=== PATIENT | male | born 1965 ===

== ENCOUNTER 2017-07-18 18:22 | Inpatient (IN) | payer OTHER ==
[~2017-07-18] VITALS: Ht 165.1 cm; Wt 60.5 kg
[2017-07-18] MEDS ORDERED: SODIUM CHLORIDE 0.9% 1000ML 1,000 ML IV STA ×2 (19:34→23:06)
--- NOTE | 2017-07-18 20:24 | DIAGNOSTIC IMAGING REPORT ---
CHEST ONE VIEW PORTABLE CLINICAL HISTORY: Pain, radiating to the abdomen. COMPARISON STUDY: No previous studies for comparison. FINDINGS: The cardiac and mediastinal contours are normal. There is no evidence of focal pulmonary consolidation. There is no evidence of failure. No pleural effusions are visualized.[ No free intraperitoneal air is visualized. IMPRESSION: No active disease in the chest. Electronically signed by: Bird Short M.D. 07/18/2017 8:23 PM Dictated Date/Time: 07/18/2017 8:22 PM
[2017-07-18 20:28] LABS: ALBUMIN 2.4 gm/dl (3.4-5.0); BLOOD UREA NITROGEN 8 mg/dl (7-18); CALCIUM 8.4 mg/dl (8.5-10.1); CARBON DIOXIDE 27 mmol/L (21-32); GLUCOSE 118 mg/dl (70-99); LIPASE 77 U/L (73-393); POTASSIUM 3.5 mmol/L (3.5-5.1); SODIUM 136 mmol/L (136-145)
[2017-07-18 20:37] LABS: HEMATOCRIT 40.5 % (42-52); HEMOGLOBIN 13.9 g/dL (14.0-18.0); MEAN CORPUSCULAR HEMOGLOBIN 30.5 pg (25-34); MEAN CORPUSCULAR HGB CONC 34.3 g/dl (32-36); MEAN PLATELET VOLUME 10.7 fL (7.4-10.4); PLATELET COUNT 365 K/uL (130-400); RED CELL DISTRIBUTION WIDTH CV 13.2 % (11.5-14.5); RED CELL DISTRIBUTION WIDTH SD 42.9 fL (36.4-46.3); WHITE BLOOD COUNT 17.59 K/uL (4.8-10.8)
[2017-07-18 20:38] LABS: BASO % 0.3 %; BASO ABS # 0.05 K/uL (0-0.2); EOS % 1.7 %; LYMPH % 12.8 %; LYMPH ABS # 2.26 K/uL (1.2-3.4); MONO % 15.9 %; MONO ABS # 2.79 K/uL (0.11-0.59); NEUT % 68.7 %; NEUT ABS # 12.09 K/uL (1.4-6.5)
[2017-07-18 20:39] LABS: ALKALINE PHOSPHATASE 84 U/L (45-117); ALT/SGPT 20 U/L (12-78); AST/SGOT 17 U/L (15-37); TOTAL PROTEIN 6.6 gm/dl (6.4-8.2)
[2017-07-18] MEDS ORDERED: OPTIRAY 320 IV PRN (22:15)
[2017-07-18 22:37] LABS: INR 1.1 (0.9-1.1)
--- NOTE | 2017-07-18 22:46 | DIAGNOSTIC IMAGING REPORT ---
CT ABD/PELVIS IV AND ORAL CONT CLINICAL HISTORY: Abdominal pain and bloody diarrhea COMPARISON STUDY: None. TECHNIQUE: Following the IV administration of 92 mL of Optiray-320, CT scan of the abdomen and pelvis was performed from the lung bases to the proximal femurs. Images are reviewed in the axial, sagittal, and coronal planes. IV contrast was administered without complication. A dose lowering technique was utilized adhering to the principles of ALARA. CT DOSE: 273.08 mGy.cm FINDINGS: Lower chest: There is pulmonary emphysema. There are dependent atelectatic changes. Liver: There is an 8 mm left lobe hepatic hypodensity likely representing a cyst. Gallbladder: Unremarkable. Spleen: Normal in size and attenuation. Pancreas: Unremarkable. Adrenal glands: Unremarkable. Kidneys: There is a 9 mm right renal calculus. There is no hydronephrosis. There are no solid renal masses. Bowel: There is diffuse colonic wall thickening extending from the rectum to the ascending colon. The findings are indicative of pancolitis. There is no evidence of acute appendicitis. Peritoneum: There is no intraperitoneal free air or abdominal ascites. Vasculature: The abdominal aorta is normal in course and caliber. Adenopathy: There are mildly prominent para-aortic lymph nodes, possibly reactive. Pelvic viscera: The bladder, and pelvic viscera are unremarkable. Skeletal structures: No destructive osseous lesions are seen. IMPRESSION: 1. No evidence of bowel obstruction. No evidence of free air 2. Extensive pancolonic bowel wall thickening with engorgement of the adjacent mesentery. The findings are indicative of a pancolitis 3. Nonobstructing right renal calculus 4. Mildly prominent para-aortic lymph nodes possibly reactive 5. Emphysema Electronically signed by: Bird Short M.D. 07/18/2017 10:44 PM Dictated Date/Time: 07/18/2017 10:39 PM
[2017-07-18] MEDS ORDERED: MELO-84 PO (23:53)
[2017-07-18] MEDS ORDERED: RANI150T85 PO (23:53)
[2017-07-18] MEDS ORDERED: ONDA4TAB46 PO (23:53)
[2017-07-19] VITALS (7 sets, daily range): BP systolic 98–133; BP diastolic 62–80; PULSE 89–103; TEMP 36.9–37.4; O2SAT 93–97; Ht 165.1 cm; Wt 60.5 kg
--- NOTE | 2017-07-19 00:03 | EMERGENCY ROOM VISIT NOTE ---
History Report prepared by Becki: Ngozi Ziegler Under the Supervision of: Dr. Nishant Awad D.O. First contact with patient: 19:34 Chief Complaint: DIARRHEA Stated Complaint: BLOODY DIARRHEA Nursing Triage Summary: bloody diarrhea for 3 weeks nausea abd pain History of Present Illness The patient is a 52 year old male who presents to the Emergency Room with complaints of persistent diarrhea starting a few weeks ago. The patient presents to the ED from intermediate. The patient has had frequent bloody diarrhea. He has never had this before. He is having generalized abdominal pain which worsens with having a bowel movement. He is nauseous, but has not vomited. [facility] for a [facility]oscopy. His blood pressure was found to be low today. He denies any recent antibiotic use. He denies having any medical problems or previous abdominal surgeries. He quit smoking 2 months ago. He denies any history of alcoholism. He denies any sick contacts. Source of History: patient Onset: few weeks ago Position: abdomen Quality: other (diarrhea) Timing: other (persistent) Associated Symptoms: + nausea, + abdominal pain, + hematochezia, No vomiting Review of Systems See HPI for pertinent positives & negatives. A total of 10 systems reviewed and were otherwise negative. Past Medical & Surgical No previous abdominal surgeries. Family History No pertinent family history stated. Social History Smoking Status: Former Smoker Housing Status: other (intermediate) Current/Historical Medications Scheduled Ranitidine (Zantac), 150 MG PO BID Scheduled PRN Meloxicam (Mobic), 15 MG PO DAILY PRN for Pain Ondansetron Hcl (Zofran), 4 MG PO TID PRN for Nausea Allergies Coded Allergies: No Known Allergies (Unverified , 07/18/17) Physical Exam Vital Signs Date Time Temp Pulse Resp B/P (MAP) Pulse Ox O2 Delivery O2 Flow Rate FiO2 07/19/17 00:06 95 07/18/17 23:21 93 18 125/76 97 Room Air 07/18/17 22:46 93 20 108/70 97 Room Air 07/18/17 20:57 98 16 123/66 97 Room Air 98 126/81 100 132/91 07/18/17 20:27 93 07/18/17 19:41 96 Room Air 07/18/17 19:41 96 Room Air 07/18/17 18:40 37.1 109 20 107/72 96 Room Air Physical Exam GENERAL: Patient is awake, alert, frail appearing, uncomfortable appearing. EYES: The conjunctivae are clear. The pupils are round and reactive. EARS, NOSE, MOUTH AND THROAT: The nose is without any evidence of any deformity. Mucous membranes are dry tongue is midline NECK: The neck is nontender and supple. RESPIRATORY: Normal respiratory effort is noted there is no evidence of wheezing rhonchi or rales CARDIOVASCULAR: Regular rate and rhythm noted there no murmurs rubs or gallops normal S1 normal S2 GASTROINTESTINAL: The abdomen is soft with diffuse tenderness to palpation. No guarding or rigidity appreciated. MUSCULOSKELETAL/EXTREMITIES: There is no evidence of gross deformity full range of motion is noted in the hips and shoulders SKIN: There is no obvious evidence of any rash. There are no petechiae, pallor or cyanosis noted. NEUROLOGIC: Patient is awake alert and oriented x3 Medical Decision & Procedures ER Provider Diagnostic Interpretation: X-ray results as stated below per interpretation by me and the radiologist. Radiology results as stated below per my review and radiologist interpretation: CHEST ONE VIEW PORTABLE CLINICAL HISTORY: Pain, radiating to the abdomen. COMPARISON STUDY: No previous studies for comparison. FINDINGS: The cardiac and mediastinal contours are normal. There is no evidence of focal pulmonary consolidation. There is no evidence of failure. No pleural effusions are visualized.[ No free intraperitoneal air is visualized. IMPRESSION: No active disease in the chest. Electronically signed by: Bird Short M.D. 07/18/2017 8:23 PM Dictated Date/Time: 07/18/2017 8:[address] ABD/PELVIS IV AND ORAL CONT CLINICAL HISTORY: Abdominal pain and bloody diarrhea COMPARISON STUDY: None. TECHNIQUE: Following the IV administration of 92 mL of Optiray-320, CT scan of the abdomen and pelvis was performed from the lung bases to the proximal femurs. Images are reviewed in the axial, sagittal, and coronal planes. IV contrast was administered without complication. A dose lowering technique was utilized adhering to the principles of ALARA. CT DOSE: 273.08 mGy.cm FINDINGS: Lower chest: There is pulmonary emphysema. There are dependent atelectatic changes. Liver: There is an 8 mm left lobe hepatic hypodensity likely representing a cyst. Gallbladder: Unremarkable. Spleen: Normal in size and attenuation. Pancreas: Unremarkable. Adrenal glands: Unremarkable. Kidneys: There is a 9 mm right renal calculus. There is no hydronephrosis. There are no solid renal masses. Bowel: There is diffuse colonic wall thickening extending from the rectum to the ascending colon. The findings are indicative of pancolitis. There is no evidence of acute appendicitis. Peritoneum: There is no intraperitoneal free air or abdominal ascites. Vasculature: The abdominal aorta is normal in course and caliber. Adenopathy: There are mildly prominent para-aortic lymph nodes, possibly reactive. Pelvic viscera: The bladder, and pelvic viscera are unremarkable. Skeletal structures: No destructive osseous lesions are seen. IMPRESSION: 1. No evidence of bowel obstruction. No evidence of free air 2. Extensive pancolonic bowel wall thickening with engorgement of the adjacent mesentery. The findings are indicative of a pancolitis 3. Nonobstructing right renal calculus 4. Mildly prominent para-aortic lymph nodes possibly reactive 5. Emphysema Electronically signed by: Bird Short M.D. 07/18/2017 10:44 PM Dictated Date/Time: 07/18/2017 10:39 PM Laboratory Results 07/18/17 19:45 Red Blood Count 4.55, Mean Corpuscular Volume 89.0, Mean Corpuscular Hemoglobin 30.5, Mean Corpuscular Hemoglobin Concent 34.3, Mean Platelet Volume 10.7, Neutrophils (%) (Auto) 68.7, Lymphocytes (%) (Auto) 12.8, Monocytes (%) (Auto) 15.9, Eosinophils (%) (Auto) 1.7, Basophils (%) (Auto) 0.3, Neutrophils # (Auto ) 12.09, Lymphocytes # (Auto) 2.26, Monocytes # (Auto) 2.79, Eosinophils # (Auto ) 0.30, Basophils # (Auto) 0.05 07/18/17 19:45 Test 07/18/17 19:45 07/18/17 21:51 White Blood Count 17.59 K/uL (4.8-10.8) Red Blood Count 4.55 M/uL (4.7-6.1) Hemoglobin 13.9 g/dL (14.0-18.0) Hematocrit 40.5 % (42-52) Mean Corpuscular Volume 89.0 fL (80-100) Mean Corpuscular Hemoglobin 30.5 pg (25-34) Mean Corpuscular Hemoglobin Concent 34.3 g/dl (32-36) Platelet Count 365 K/uL (130-400) Mean Platelet Volume 10.7 fL (7.4-10.4) Neutrophils (%) (Auto) 68.7 % Lymphocytes (%) (Auto) 12.8 % Monocytes (%) (Auto) 15.9 % Eosinophils (%) (Auto) 1.7 % Basophils (%) (Auto) 0.3 % Neutrophils # (Auto) 12.09 K/uL (1.4-6.5) Lymphocytes # (Auto) 2.26 K/uL (1.2-3.4) Monocytes # (Auto) 2.79 K/uL (0.11-0.59) Eosinophils # (Auto) 0.30 K/uL (0-0.5) Basophils # (Auto) 0.05 K/uL (0-0.2) RDW Standard Deviation 42.9 fL (36.4-46.3) RDW Coefficient of Variation 13.2 % (11.5-14.5) Immature Granulocyte % (Auto) 0.6 % Immature Granulocyte # (Auto) 0.10 K/uL (0.00-0.02) Platelet Estimate NORMAL Urine Color DK YELLOW Urine Appearance CLEAR (CLEAR) Urine pH 5.5 (4.5-7.5) Urine Specific [place] 1.018 (1.000-1.030) Urine Protein TRACE (NEG) Urine Glucose (UA) NEG (NEG) Urine Ketones NEG (NEG) Urine Occult Blood TRACE (NEG) Urine Nitrite NEG (NEG) Urine Bilirubin NEG (NEG) Urine Urobilinogen NEG (NEG) Urine Leukocyte Esterase NEG (NEG) Urine WBC (Auto) 1-5 /hpf (0-5) Urine RBC (Auto) 0-4 /hpf (0-4) Urine Hyaline Casts (Auto) 10-30 /lpf (0-5) Urine Epithelial Cells (Auto) 20-30 /lpf (0-5) Urine Bacteria (Auto) NEG (NEG) Anion Gap 8.0 mmol/L (3-11) Est Creatinine Clear Calc Drug Dose 80.3 ml/min Estimated GFR () 111.8 Estimated GFR (Non- 96.5 BUN/Creatinine Ratio 8.8 (10-20) Calcium Level 8.4 mg/dl (8.5-10.1) Magnesium Level 2.4 mg/dl (1.8-2.4) Total Bilirubin 0.3 mg/dl (0.2-1) Direct Bilirubin < 0.1 mg/dl (0-0.2) Aspartate Amino Transf (AST/SGOT) 17 U/L (15-37) Alanine Aminotransferase (ALT/SGPT) 20 U/L (12-78) Alkaline Phosphatase 84 U/L (45-117) Total Protein 6.6 gm/dl (6.4-8.2) Albumin 2.4 gm/dl (3.4-5.0) Lipase 77 U/L (73-393) Thyroid Stimulating Hormone (TSH) 1.210 uIu/ml (0.300-4.500) Prothrombin Time 11.1 SECONDS (9.0-12.0) Prothromb Time International Ratio 1.1 (0.9-1.1) Activated Partial Thromboplast Time 29.0 SECONDS (21.0-31.0) Partial Thromboplastin Ratio 1.1 Laboratory results per my review. Medications Administered Medications (Trade) Dose Ordered Sig/John Route Start Time Stop Time Status Last Admin Dose Admin Sodium Chloride 1,000 ml @ 999 mls/hr Q1H1M STAT IV 07/18/17 19:34 07/18/17 20:34 DC 07/18/17 20:14 999 MLS/HR Sodium Chloride 1,000 ml @ 999 mls/hr Q1H1M STAT IV 07/18/17 23:06 07/19/17 00:06 DC 07/18/17 23:20 999 MLS/HR ED Course 4: NSS 1,000 ml @ 999 mls/hr IV 1947: The patient was evaluated in room A10. A complete history and physical examination were performed. 6: NSS 1,000 ml @ 999 mls/hr IV 2330: Upon reevaluation, the patient is stable. I discussed results and treatment plan with him. He verbalizes agreement and understanding. The patient will be evaluated for further management and care. 2333: I discussed the patient's case with Dr. Maria, [facility]. The patient will be evaluated for further management. Medical Decision Prior records/ancillary studies reviewed. Triage Nursing notes reviewed. The patient's history was concerning for abdominal pain. Differential diagnosis: Etiologies such as appendicitis, diverticulitis, PUD, biliary pathology, UTI, pancreatitis, obstruction, mesenteric ischemia, aortic pathology, infections, inflammatory bowel disease, renal colic, as well as others were entertained. The patient is a 52-year-old male who presented to the emergency department from the intermediate for ongoing diarrhea and GI bleeding. The patient had diffuse abdominal tenderness. The patient was treated with IV fluids in the emergency department. I discussed patient's laboratory and radiographic studies with him. Because of his ongoing symptoms and his abnormal laboratory studies as well as his pancolitis on CAT scan I discussed his case with the on-call [facility] hospitalist. They have agreed to evaluate the patient in the emergency department for further management and disposition. Medication Reconcilliation Current Medication List: was personally reviewed by me Blood Pressure Screening Patient's blood pressure: Normal blood pressure Blood pressure disposition: Did not require urgent referral Consults Time Called: 2306 Consulting Physician: Dr. Maria, [facility] Returned Call: [phone] I discussed the patient's case with him. The patient will be evaluated for further management. Impression Primary Impression: Pancolitis Additional Impressions: Diarrhea GI bleeding Scribe Attestation The scribe's documentation has been prepared under my direction and personally reviewed by me in its entirety. I confirm that the note above accurately reflects all work, treatment, procedures, and medical decision making performed by me. Departure Information Dispostion Being Evaluated By Hospitalist Referrals Curtis ALVAREZ (PCP) Patient Instructions My [facility] Problem Qualifiers Additional Impressions: Diarrhea Diarrhea type: unspecified type Qualified Codes: R19.7 - Diarrhea, unspecified GI bleeding GI bleed type/associated pathology: unspecified gastrointestinal hemorrhage type Qualified Codes: K92.2 - Gastrointestinal hemorrhage, unspecified
[2017-07-19] MEDS ORDERED: ACETAMINOPHEN 325 MG TAB PO PRN (02:00)
[2017-07-19] MEDS ORDERED: ALUMINUM/MAGNESIUM/SIMETH (MAALOX MAX) 30 ML UDC PO PRN (02:00)
[2017-07-19] MEDS: CIPROFLOXACIN / D5W 400 MG in PREMIXED IN D5W 200 ML IV SCH ×2 (03:04→14:49)
[2017-07-19] MEDS: MoRPHine SULFATE 4 MG/ML 1 ML CARP\\VIAL IV PRN ×2 (03:05→08:14)
[2017-07-19] MEDS: D5W AND NSS 1,000 ML IV SCH ×2 (04:11→14:55)
[2017-07-19] MEDS: METRONIDAZOLE / NSS 500 MG in PREMIXED NSS 100 ML IV SCH ×3 (04:11→21:02)
--- NOTE | 2017-07-19 05:26 | HISTORY & PHYSICAL EXAMINATION ---
DATE OF ADMISSION: 07/19/2017 CHIEF COMPLAINT: Abdominal pain and bloody diarrhea. HISTORY OF PRESENT ILLNESS: This is a 52-year-old male with no significant past medical history except for he had a colonoscopy done 15 years ago for lower GI bleed, which was at that time he had polypectomy otherwise unremarkable who is currently at nursing home comes because of ongoing diarrhea for last 2 weeks. The patient states has diarrhea with some blood in the stools and was having severe abdominal pain and is very nauseous, but appetite is okay. He is eating okay. Denies any fever, chills. No headaches, no blurred vision, no ear ache, no sore throat, no difficulty swallowing. No chest pain, no shortness of breath, no cough, no rash anywhere. Otherwise, he is doing okay. Not on any medications but he was placed recently on some meds for his ongoing symptoms ALLERGIES: No known drug allergies. PAST MEDICAL HISTORY: As mentioned above. PAST SURGICAL HISTORY: None. MEDICATIONS: None. FAMILY HISTORY: Significant for father had heart disease. SOCIAL HISTORY: Smoking history, used to smoke about 10 cigarettes a day for many years, but not since his last 2 months. Alcohol history, drank when he was young. Smoked marijuana. REVIEW OF SYMPTOMS: As per HPI. Rest of the symptoms negative. PHYSICAL EXAMINATION: GENERAL: Patient is moderate built, not in distress. VITAL SIGNS: Temperature 37.1, pulse 98, respiratory rate 18, blood pressure 107/73, oxygen 97% room air. HEENT: No pallor, no icterus. Pupils equal, round, reactive to light. NECK: No JVD, no neck masses, no carotid bruits. CARDIOVASCULAR: S1, S2 heard. Tachycardia. No murmurs. RESPIRATORY SYSTEM: Clear to auscultation bilaterally. No wheezing, no crackles. ABDOMEN: Soft, bowel sounds present. Diffuse tenderness, no guarding, no rigidity. CENTRAL NERVOUS SYSTEM: Cranial nerves II through XII grossly intact. Nonfocal. EXTREMITIES: No edema, no erythema. LABS: Sodium 136, potassium 3.4, chloride 101, bicarbonate 27, BUN 8, creatinine 0.9, serum glucose 118, calcium 9.4, magnesium 2.4, total bilirubin 0.3, direct bilirubin less than 0.8, AST 17, ALT 20, alkaline phosphatase 84, lipase 27, TSH 1.2. WBC 17.5, hemoglobin 13.9, hematocrit 40.5, platelets 365. PT 11.1, INR 1.1, aPTT 29.0. Urinalysis: Trace of occult blood. Chest x-ray: No acute disease in the chest. CT abdomen and pelvis: No evidence of bowel obstruction, no evidence of free air, extensive carney colonic bowel wall thickening with engorgement of the mesentery, this is indicative of pancolitis, nonobstructing right renal calculus, mild permanent paraortic lymph nodes, possibly reactive to emphysema. ASSESSMENT AND PLAN: This is a 52-year-old male who presents with severe abdominal pain with diarrhea and blood in the stools and CAT scan shows pancolitis. 1. Pancolitis. Infectious vs inflammatory Abdominal pain, diarrhea, and blood in the stool going on for 2 weeks. Patient has history of lower GI bleed 15years ago and as per patient colonoscopy at that time was unremarkable except for benign polyps. C. diff test done in the ER was negative. We will follow the stool culture. Patient placed empirically on IV Cipro and Flagyl. Clear liquid diet, IV fluids, IV pain medicine, IV antiemetics p.r.n. GI consult for further recommendations. IV Protonix b.i.d. for now and monitor on the medical floor. 2. Deep vein thrombosis prophylaxis, SCDs and TEDs. 3. Disposition: Admit to medical floor. Expect to discharge back to correctional facility when stable. Level 1 full code. MTDD
[2017-07-19 06:38] LABS: HEMATOCRIT 35.3 % (42-52); HEMOGLOBIN 11.8 g/dL (14.0-18.0)
[2017-07-19] MEDS: ONDANSETRON INJ 2 MG/ML 2 ML VIAL IV PRN ×2 (08:14→22:05)
[2017-07-19] MEDS: PANTOprazole INJ 40 MG in SYRINGE 0 ML IV SCH ×2 (08:16→21:03)
--- NOTE | 2017-07-19 10:38 | Gastrointestinal Consultation ---
Gastrointestinal Consultation Date of Consultation: Jul 19, 2017 Attending Physician: Natalie Consulting Physician: Judy Reason for Consultation: diarrhea, rectal bleeding History of Present Illness Patient is a 52 year old male w/ no past medical history who presented to [facility] for two weeks of abdominal pain, diarrhea and BRBPR. Pt was seen and evaluated, chart reviewed. Notes for the past two weeks he has had alternating stools, diarrhea and constipation associated w/ rectal bleeding. BRB no clots. Blood can be mixed with stool and on the toilet paper. He had constant abd pain, worse before BM, slightly relieved with BM. Some nausea, no vomiting. Is tolerating diet. No fever, chills, CP, SOB. stool culture: pending c.diff: negative CT: No evidence of bowel obstruction. No evidence of free air Extensive pancolonic bowel wall thickening with engorgement of the adjacentmesentery. The findings are indicative of a pancolitis Nonobstructing right renal calculusMildly prominent para-aortic lymph nodes possibly reactiveEmphysema EGD: none Colonoscopy: years ago, one polyp per pt Family history of IBD: none Past Medical/Surgical History Medical Problems: (1) Diarrhea Status: Acute (2) GI bleeding Status: Acute (3) Pancolitis Status: Acute Past Medical History: none Past Surgical History: colonoscopy Social History Smoking Status: Former Smoker Housing Status: other ([facility]) Allergies Coded Allergies: No Known Allergies (Unverified , 07/18/17) Current Medications Home Meds and Scripts Medications Dose Route/Sig Max Daily Dose Days Date Category Mobic (Meloxicam) 15 Mg Tab 15 Mg PO DAILY PRN 07/18/17 Reported Zofran (Ondansetron HCl) 4 Mg Tab 4 Mg PO TID PRN 07/18/17 Reported Zantac (Ranitidine HCl) 150 Mg Tab 150 Mg PO BID 07/18/17 Reported Review of Systems Constitutional: No fever, No chills Respiratory: No cough, No shortness of breath Cardiac: No chest pain, No edema Abdomen: + pain, + nausea, + diarrhea, + constipation, + GI bleeding Physical Exam Date Time Temp Pulse Resp B/P (MAP) Pulse Ox O2 Delivery O2 Flow Rate FiO2 07/19/17 08:05 Room Air 07/19/17 07:52 37.0 91 16 108/69 (82) 93 Room Air 111/72 (85) 118/71 (87) 07/19/17 05:23 Room Air 07/19/17 02:35 37.4 93 16 133/80 (97) 97 Room Air 07/19/17 02:22 Room Air 07/19/17 01:36 98 18 107/73 97 Room Air 07/19/17 00:06 95 07/18/17 23:21 93 18 125/76 97 Room Air 07/18/17 22:46 93 20 108/70 97 Room Air 07/18/17 20:57 98 16 123/66 97 Room Air 98 126/81 100 132/91 07/18/17 20:27 93 07/18/17 19:41 96 Room Air 07/18/17 19:41 96 Room Air 07/18/17 18:40 37.1 109 20 107/72 96 Room Air General Appearance: no apparent distress Eyes: PERRL ENT: hearing grossly normal Neck: supple, trachea midline Respiratory/Chest: lungs clear Cardiovascular: no edema Abdomen: normal bowel sounds, soft, no organomegaly, no pulsatile mass, + tenderness (generalized) Neurologic/Psych: alert, normal mood/affect, oriented x 3 Skin: normal color Laboratory Results Last 24 Hours Test 07/18/17 19:45 07/18/17 21:51 07/19/17 06:19 White Blood Count 17.59 K/uL Red Blood Count 4.55 M/uL Hemoglobin 13.9 g/dL 11.8 g/dL Hematocrit 40.5 % 35.3 % Mean Corpuscular Volume 89.0 fL Mean Corpuscular Hemoglobin 30.5 pg Mean Corpuscular Hemoglobin Concent 34.3 g/dl Platelet Count 365 K/uL Mean Platelet Volume 10.7 fL Neutrophils (%) (Auto) 68.7 % Lymphocytes (%) (Auto) 12.8 % Monocytes (%) (Auto) 15.9 % Eosinophils (%) (Auto) 1.7 % Basophils (%) (Auto) 0.3 % Neutrophils # (Auto) 12.09 K/uL Lymphocytes # (Auto) 2.26 K/uL Monocytes # (Auto) 2.79 K/uL Eosinophils # (Auto) 0.30 K/uL Basophils # (Auto) 0.05 K/uL RDW Standard Deviation 42.9 fL RDW Coefficient of Variation 13.2 % Immature Granulocyte % (Auto) 0.6 % Immature Granulocyte # (Auto) 0.10 K/uL Platelet Estimate NORMAL Urine Color DK YELLOW Urine Appearance CLEAR Urine pH 5.5 Urine Specific Export 1.018 Urine Protein TRACE Urine Glucose (UA) NEG Urine Ketones NEG Urine Occult Blood TRACE Urine Nitrite NEG Urine Bilirubin NEG Urine Urobilinogen NEG Urine Leukocyte Esterase NEG Urine WBC (Auto) 1-5 /hpf Urine RBC (Auto) 0-4 /hpf Urine Hyaline Casts (Auto) 10-30 /lpf Urine Epithelial Cells (Auto) 20-30 /lpf Urine Bacteria (Auto) NEG Sodium Level 136 mmol/L Potassium Level 3.5 mmol/L Chloride Level 101 mmol/L Carbon Dioxide Level 27 mmol/L Anion Gap 8.0 mmol/L Blood Urea Nitrogen 8 mg/dl Creatinine 0.90 mg/dl Est Creatinine Clear Calc Drug Dose 80.3 ml/min Estimated GFR () 111.8 Estimated GFR (Non- 96.5 BUN/Creatinine Ratio 8.8 Random Glucose 118 mg/dl Calcium Level 8.4 mg/dl Magnesium Level 2.4 mg/dl Total Bilirubin 0.3 mg/dl Direct Bilirubin < 0.1 mg/dl Aspartate Amino Transf (AST/SGOT) 17 U/L Alanine Aminotransferase (ALT/SGPT) 20 U/L Alkaline Phosphatase 84 U/L Total Protein 6.6 gm/dl Albumin 2.4 gm/dl Lipase 77 U/L Thyroid Stimulating Hormone (TSH) 1.210 uIu/ml Prothrombin Time 11.1 SECONDS Prothromb Time International Ratio 1.1 Activated Partial Thromboplast Time 29.0 SECONDS Partial Thromboplastin Ratio 1.1 Impression Patient is a 52 year old male w/ abd pain, diarrhea, rectal bleeding x 2 weeks. No history of IBD or family history of IBD. CT w/ pancolitis, c.diff negative, culture pending. Infectious vs inflammatory Plan Agree with empiric ABX for now IVF Hydration Clear liquid diet as tolerated Bentyl 10 mg TID Monitor output Trend H&H Transfuse PRN c.diff negative culture pending Depends results of culture and clinical improvement will discuss role of endoscopic evaluation Please call with any acute changes, questions or concerns. Attg add: I interviewed and examined pt, reviewed chart and labs. Pt with abd pain and blood diarrhea. VS unremarkable. On exam, he has anemia, low albumin , WBC 18k. CT shows carney colitis. C diff, cx neg. His presentation appears most c/w infectious dysentery, although I cannot r/o IBD. Would favor emprix zithromax, and flex sig tomorrow for bx to look for evidence of IBD.
[2017-07-19 14:19] LABS: HEMATOCRIT 33.8 % (42-52); HEMOGLOBIN 11.2 g/dL (14.0-18.0)
--- NOTE | 2017-07-19 15:33 | DIAGNOSTIC IMAGING REPORT ---
KUB CLINICAL HISTORY: Worsening abdominal pain. Bowel distention. COMPARISON STUDY: 07/18/2017 FINDINGS: There is gas present within both large and small bowel loops. The cecum is estimated to measure approximately 5 cm. IMPRESSION: 1. No evidence of bowel obstruction 2. Gas-filled large and small bowel loops. No significant bowel dilatation. Electronically signed by: Bird Short M.D. 07/19/2017 3:32 PM Dictated Date/Time: 07/19/2017 3:31 PM
--- NOTE | 2017-07-19 18:03 | Progress Note ---
Medicine Progress Note Date & Time of Visit: Jul 19, 2017 at 17:58. Subjective Seen resting in bed, comfortable RN into the correctional officers at the bedside States he has had at least 4 bowel movements today, loose with bright red blood Still has intermittent abdominal cramping No nausea/vomiting No chest pain, shortness of breath, dizziness Denies other symptoms Objective Last 8 Hrs Date Time Temp Pulse Resp B/P (MAP) Pulse Ox O2 Delivery O2 Flow Rate FiO2 07/19/17 15:06 36.9 91 16 107/68 (81) 93 Room Air Physical Exam: General-oriented 3, not in distress, speaking in sentences, no effort Head- atraumatic Eyes- PERRL, EOMI, anicteric ENT- oropharynx clear Neck- supple, no JVD, no adenopathy, no thyromegaly Lungs- clear to auscultation bilaterally, no rales or wheezes Heart- regular rhythm; no murmur, normal rate Abdomen- normal bowel sounds, soft, nontender, nondistended Extremities- no pretibial edema, no calf tenderness; peripheral pulses intact Neuro- alert, oriented x 3; no gross focal neurologic deficits Skin- warm & dry Laboratory Results: Last 24 Hours Test 07/18/17 19:45 07/18/17 21:51 07/19/17 06:19 07/19/17 13:52 White Blood Count 17.59 K/uL Red Blood Count 4.55 M/uL Hemoglobin 13.9 g/dL 11.8 g/dL 11.2 g/dL Hematocrit 40.5 % 35.3 % 33.8 % Mean Corpuscular Volume 89.0 fL Mean Corpuscular Hemoglobin 30.5 pg Mean Corpuscular Hemoglobin Concent 34.3 g/dl Platelet Count 365 K/uL Mean Platelet Volume 10.7 fL Neutrophils (%) (Auto) 68.7 % Lymphocytes (%) (Auto) 12.8 % Monocytes (%) (Auto) 15.9 % Eosinophils (%) (Auto) 1.7 % Basophils (%) (Auto) 0.3 % Neutrophils # (Auto) 12.09 K/uL Lymphocytes # (Auto) 2.26 K/uL Monocytes # (Auto) 2.79 K/uL Eosinophils # (Auto) 0.30 K/uL Basophils # (Auto) 0.05 K/uL RDW Standard Deviation 42.9 fL RDW Coefficient of Variation 13.2 % Immature Granulocyte % (Auto) 0.6 % Immature Granulocyte # (Auto) 0.10 K/uL Platelet Estimate NORMAL Urine Color DK YELLOW Urine Appearance CLEAR Urine pH 5.5 Urine Specific [place] 1.018 Urine Protein TRACE Urine Glucose (UA) NEG Urine Ketones NEG Urine Occult Blood TRACE Urine Nitrite NEG Urine Bilirubin NEG Urine Urobilinogen NEG Urine Leukocyte Esterase NEG Urine WBC (Auto) 1-5 /hpf Urine RBC (Auto) 0-4 /hpf Urine Hyaline Casts (Auto) 10-30 /lpf Urine Epithelial Cells (Auto) 20-30 /lpf Urine Bacteria (Auto) NEG Sodium Level 136 mmol/L Potassium Level 3.5 mmol/L Chloride Level 101 mmol/L Carbon Dioxide Level 27 mmol/L Anion Gap 8.0 mmol/L Blood Urea Nitrogen 8 mg/dl Creatinine 0.90 mg/dl Est Creatinine Clear Calc Drug Dose 80.3 ml/min Estimated GFR () 111.8 Estimated GFR (Non- 96.5 BUN/Creatinine Ratio 8.8 Random Glucose 118 mg/dl Calcium Level 8.4 mg/dl Magnesium Level 2.4 mg/dl Total Bilirubin 0.3 mg/dl Direct Bilirubin < 0.1 mg/dl Aspartate Amino Transf (AST/SGOT) 17 U/L Alanine Aminotransferase (ALT/SGPT) 20 U/L Alkaline Phosphatase 84 U/L Total Protein 6.6 gm/dl Albumin 2.4 gm/dl Lipase 77 U/L Thyroid Stimulating Hormone (TSH) 1.210 uIu/ml Prothrombin Time 11.1 SECONDS Prothromb Time International Ratio 1.1 Activated Partial Thromboplast Time 29.0 SECONDS Partial Thromboplastin Ratio 1.1 Date/Time Source Procedure Growth Status 07/19/17 05:50 Nasal MRSA DNA Surveillance Screen - Final Specimen Negative for MRSA by DNA Probe Complete 07/18/17 19:45 Stool Shiga Toxin Test - Preliminary No E. Coli shiga toxin 1 or shiga tox... Resulted 07/18/17 19:45 Stool Stool Culture - Preliminary NO SALMONELLA ISOLATED TO DATE,... Resulted 07/18/17 19:45 Stool WBC Smear - Final Complete 07/18/17 19:45 Stool C.difficile Toxin B Gene (PCR) - Final No C. difficile toxin B gene detected Complete Assessment & Plan ASSESSMENT AND PLAN: This is a 52-year-old male who presents with severe abdominal pain with diarrhea and blood in the stools and CAT scan shows pancolitis. HEMATOCHEZIA, POSSIBLY SECONDARY TO PANCOLITIS INFECTIOUS VERSUS INFLAMMATORY Hemoglobin decreased from 13-11 C. difficile stool antigen test: Negative Stool cultures: Negative Monitor hemoglobin Evaluated by GI service Recommend to continue antibiotics, change ceftriaxone/Flagyl to azithromycin Continue Protonix IV twice daily Continue IV fluids Plan for flexible sigmoidoscopy in the morning Deep vein thrombosis prophylaxis, SCDs and TEDs. Disposition: Evaluation of hematochezia in progress Anticipate return to correctional facility when medically stable and cleared by GI service Current Inpatient Medications: Current Inpatient Medications Medications (Trade) Dose Ordered Sig/John Route Start Time Stop Time Status Last Admin Dose Admin Ioversol (Optiray 320) 100 ml UD PRN IV 07/18/17 22:15 07/22/17 22:14 Acetaminophen (Tylenol Tab) 650 mg Q4H PRN PO 07/19/17 02:00 08/18/17 01:59 Al Hydrox/Mg Hydrox/Simethicone (Maalox Max Susp) 15 ml Q4H PRN PO 07/19/17 02:00 08/18/17 01:59 Ondansetron HCl (Zofran Inj) 4 mg Q6H PRN IV 07/19/17 02:00 08/18/17 01:59 07/19/17 08:14 4 MG Pantoprazole Sodium 40 mg/ Syringe 10 ml @ 5 mls/min DAILY@,21 IV 07/19/17 09:00 08/18/17 08:59 07/19/17 08:16 5 MLS/MIN Dextrose/Sodium Chloride 1,000 ml @ 100 mls/hr Q10H IV 07/19/17 04:00 08/18/17 03:59 07/19/17 14:55 100 MLS/HR Morphine Sulfate (MoRPHine SULFATE INJ) 3 mg Q3HWA PRN IV 07/19/17 02:00 08/02/17 01:59 07/19/17 08:14 3 MG Ciprofloxacin/ Dextrose 400 mg/ Prmx 200 ml @ 100 mls/hr Q12H IV 07/19/17 03:00 07/29/17 02:59 07/19/17 14:49 100 MLS/HR Metronidazole 500 mg/Prmx 100 ml @ 100 mls/hr Q8H IV 07/19/17 04:00 07/29/17 03:59 07/19/17 12:31 100 MLS/HR Miscellaneous (Tap Water Enema) 1 ea TODAY@1000 [place] 07/20/17 10:00 07/20/17 18:00
[2017-07-19 22:14] LABS: HEMATOCRIT 35.3 % (42-52); HEMOGLOBIN 11.8 g/dL (14.0-18.0)
[2017-07-20] VITALS (12 sets, daily range): BP systolic 99–136; BP diastolic 58–93; PULSE 78–98; TEMP 37–37.4; O2SAT 93–97
[2017-07-20] MEDS: D5W AND NSS 1,000 ML IV SCH ×2 (00:33→13:57)
[2017-07-20] MEDS: CIPROFLOXACIN / D5W 400 MG in PREMIXED IN D5W 200 ML IV SCH ×2 (03:24→15:57)
[2017-07-20] MEDS: METRONIDAZOLE / NSS 500 MG in PREMIXED NSS 100 ML IV SCH ×3 (05:13→19:38)
[2017-07-20] MEDS: ONDANSETRON INJ 2 MG/ML 2 ML VIAL IV PRN ×2 (07:51→15:30)
[2017-07-20] MEDS: PANTOprazole INJ 40 MG in SYRINGE 0 ML IV SCH ×2 (09:06→21:25)
[2017-07-20 09:08] LABS: BASO % 0.3 %; BASO ABS # 0.03 K/uL (0-0.2); EOS % 2.4 %; EOS ABS # 0.23 K/uL (0-0.5); HEMOGLOBIN 11.7 g/dL (14.0-18.0); IG# 0.08 K/uL (0.00-0.02); LYMPH % 15.6 %; LYMPH ABS # 1.48 K/uL (1.2-3.4); MEAN CELL VOLUME 89.1 fL (80-100); MEAN CORPUSCULAR HEMOGLOBIN 29.8 pg (25-34); MEAN CORPUSCULAR HGB CONC 33.4 g/dl (32-36); MEAN PLATELET VOLUME 9.2 fL (7.4-10.4); MONO % 20.5 %; MONO ABS # 1.95 K/uL (0.11-0.59); NEUT % 60.4 %; NEUT ABS # 5.72 K/uL (1.4-6.5); PLATELET COUNT 338 K/uL (130-400); RED CELL DISTRIBUTION WIDTH CV 13.4 % (11.5-14.5); RED CELL DISTRIBUTION WIDTH SD 43.6 fL (36.4-46.3); WHITE BLOOD COUNT 9.49 K/uL (4.8-10.8)
--- NOTE | 2017-07-20 09:10 | Gastroenterology Progress Note ---
Progress Note Date of Service: Jul 20, 2017 Subjective Pt evaluation today including: conversation w/ patient, physical exam, lab review Pt was seen and evaluated, chart reviewed. No acute events overnight. Continues to have abd pain, bloody diarrhea. Notes this AM his stools are less frequent, but still bloody and loose. Mild nausea, no vomiting. Denies fever, chills, CP, SOB. Is NPO for flex sig. Needs enema this AM. stool culture: negative c.diff: negative CT: No evidence of bowel obstruction. No evidence of free air Extensive pancolonic bowel wall thickening with engorgement of the adjacentmesentery. The findings are indicative of a pancolitis Nonobstructing right renal calculusMildly prominent para-aortic lymph nodes possibly reactiveEmphysema EGD: none Colonoscopy: years ago, one polyp per pt Family history of IBD: none Review of Systems Constitutional: No fever, No chills Respiratory: No cough, No shortness of breath Cardiac: No chest pain, No edema Abdomen: + pain, + nausea, + diarrhea, + GI bleeding, No vomiting Medications Current Inpatient Medications Medications (Trade) Dose Ordered Sig/John Route Start Time Stop Time Status Last Admin Dose Admin Ioversol (Optiray 320) 100 ml UD PRN IV 07/18/17 22:15 07/22/17 22:14 Acetaminophen (Tylenol Tab) 650 mg Q4H PRN PO 07/19/17 02:00 08/18/17 01:59 Al Hydrox/Mg Hydrox/Simethicone (Maalox Max Susp) 15 ml Q4H PRN PO 07/19/17 02:00 08/18/17 01:59 Ondansetron HCl (Zofran Inj) 4 mg Q6H PRN IV 07/19/17 02:00 08/18/17 01:59 07/20/17 07:51 4 MG Pantoprazole Sodium 40 mg/ Syringe 10 ml @ 5 mls/min DAILY@ IV 07/19/17 09:00 08/18/17 08:59 07/19/17 21:03 5 MLS/MIN Dextrose/Sodium Chloride 1,000 ml @ 100 mls/hr Q10H IV 07/19/17 04:00 08/18/17 03:59 07/20/17 00:33 100 MLS/HR Morphine Sulfate (MoRPHine SULFATE INJ) 3 mg Q3HWA PRN IV 07/19/17 02:00 08/02/17 01:59 07/19/17 08:14 3 MG Ciprofloxacin/ Dextrose 400 mg/ Prmx 200 ml @ 100 mls/hr Q12H IV 07/19/17 03:00 07/29/17 02:59 07/20/17 03:24 100 MLS/HR Metronidazole 500 mg/Prmx 100 ml @ 100 mls/hr Q8H IV 07/19/17 04:00 07/29/17 03:59 07/20/17 05:13 100 MLS/HR Miscellaneous (Tap Water Enema) 1 ea TODAY@1000 [place] 07/20/17 10:00 07/20/17 18:00 Objective Vital Signs Date Time Temp Pulse Resp B/P (MAP) Pulse Ox O2 Delivery O2 Flow Rate FiO2 07/20/17 07:17 37.0 78 14 110/69 (83) 96 Room Air 82 126/78 (94) 87 122/79 (93) 07/20/17 00:00 95 127/78 (94) 07/20/17 00:00 Room Air 07/19/17 23:59 92 124/74 (91) 07/19/17 23:58 89 129/75 (93) 07/19/17 23:18 37.2 91 16 98/62 (74) 94 Room Air 07/19/17 21:47 98 111/64 (80) 103 120/74 (89) 07/19/17 15:30 Room Air 07/19/17 15:06 36.9 91 16 107/68 (81) 93 Room Air Physical Exam General Appearance: no apparent distress Eyes: PERRL ENT: hearing grossly normal Neck: supple, trachea midline Respiratory/Chest: lungs clear Cardiovascular: regular rate, rhythm Abdomen: normal bowel sounds, soft, no pulsatile mass, + tenderness Neurologic/Psych: alert, normal mood/affect, oriented x 3 Skin: normal color Laboratory Results Last 24 Hours Test 07/19/17 13:52 07/19/17 22:02 07/20/17 08:49 Hemoglobin 11.2 g/dL 11.8 g/dL Hematocrit 33.8 % 35.3 % Assessment and Plan Patient is a 52 year old male w/ abd pain, diarrhea, rectal bleeding x 2 weeks. No history of IBD or family history of IBD. CT w/ pancolitis, c.diff negative, culture pending. Infectious vs inflammatory NPO Tap water enema now Flex-Sig today
[2017-07-20 09:50] LABS: CALCIUM 7.3 mg/dl (8.5-10.1); CREATININE 0.71 mg/dl (0.60-1.40); POTASSIUM 2.9 mmol/L (3.5-5.1)
[2017-07-20] MEDS ORDERED: TAP WATER ENEMA PR SCH (10:00)
[2017-07-20] MEDS ORDERED: POTASSIUM CHLORIDE 20 MEQ TABCR PO ONE (11:30)
[2017-07-20] MEDS ORDERED: PROPOFOL IV EMULSION 10 MG/ML 20 ML VIAL IV ONE (12:29)
[2017-07-20] MEDS ORDERED: LIDOCAINE HCL 2% 2 ML VIAL (20MG/ML) ONE (12:29)
--- NOTE | 2017-07-20 12:52 | GI REPORT ---
Procedure Date: 07/20/2017 11:14 AM Procedure: Flexible Sigmoidoscopy Indications: Clinically significant diarrhea of unexplained origin Medicines: Propofol per Anesthesia Complications: No immediate complications. Estimated blood loss: None. Estimated Blood Loss: Estimated blood loss: none. Procedure: Pre-Anesthesia Assessment: - Prior to the procedure, a History and Physical was performed, and patient medications, allergies and sensitivities were reviewed. The patient's tolerance of previous anesthesia was reviewed. - ASA Grade Assessment: II - A patient with mild systemic disease. After obtaining informed consent, the endoscope was passed under direct vision. Throughout the procedure, the patient's blood pressure, pulse, and oxygen saturations were monitored continuously. The scope was introduced through the anus and advanced to the left transverse colon. The flexible sigmoidoscopy was accomplished with ease. The patient tolerated the procedure well. The quality of the bowel preparation was unprepped. Findings: Diffuse severe inflammation characterized by altered vascularity, congestion (edema), friability, granularity, confluent ulcerations and serpentine ulcerations was found in the entire colon. Biopsies were taken with a cold forceps for histology. Fluid aspiration was performed through the scope suction channel. The amount of fluid collected was 10 mL. Sample(s) were sent for Clostridium difficile. Impression: - Diffuse severe inflammation was found in the entire examined colon consistent with inflammatory bowel disease vs. pseudomembranous colitis. Biopsied. Fluid aspiration performed. Recommendation: - Await pathology results. - Return patient to [facility] for ongoing care. Nishant Muñoz M.D. Nishant Muñoz MD 07/20/2017 12:52:14 PM This report has been signed electronically. Note Initiated On: 07/20/2017 11:14 AM I attest to the content of the Intraoperative Record and orders documented therein, exceptions below
--- NOTE | 2017-07-20 13:36 | Anesthesiology Progress Note ---
Anesthesia Post Op Note Date & Time Jul 20, 2017 at 13:36 Vital Signs Pain Intensity: 2 Vital Signs Past 12 Hours Date Time Temp Pulse Resp B/P (MAP) Pulse Ox O2 Delivery O2 Flow Rate FiO2 07/20/17 13:10 97 20 128/7 (47) 97 Room Air 07/20/17 13:00 101 18 120/71 (87) 97 Room Air 07/20/17 12:50 91 18 104/69 (81) 97 Room Air 07/20/17 10:28 37.0 90 18 114/79 (91) 96 Room Air 07/20/17 08:10 96 07/20/17 07:17 37.0 78 14 110/69 (83) 96 Room Air 82 126/78 (94) 87 122/79 (93) Notes Mental Status: alert / awake / arousable, participated in evaluation Pt Amnestic to Procedure: Yes Nausea / Vomiting: adequately controlled Pain: adequately controlled Airway Patency, RR, SpO2: stable & adequate BP & HR: stable & adequate Hydration State: stable & adequate Anesthetic Complications: no major complications apparent
[2017-07-20] MEDS: POTASSIUM CHLR 10 MEQ / WTR 100 ML IV SCH ×4 (13:58→17:34)
--- NOTE | 2017-07-20 14:15 | Progress Note ---
Progress Note Date of Service Jul 20, 2017. Progress Note Flex-Sig findings concerning for IBD vs c.diff colitis. Repeat stool cultures and c.diff were obtained. In the interim will start solu-medrol IV 20 TID.
[2017-07-20] MEDS: METHYLPREDNISOLONE IV 20 MG in SYRINGE 0 ML IV SCH ×2 (15:30→21:25)
[2017-07-21] MEDS: CIPROFLOXACIN / D5W 400 MG in PREMIXED IN D5W 200 ML IV SCH ×2 (03:25→14:17)
[2017-07-21] MEDS: METRONIDAZOLE / NSS 500 MG in PREMIXED NSS 100 ML IV SCH ×3 (03:31→20:30)
[2017-07-21] MEDS: METHYLPREDNISOLONE IV 20 MG in SYRINGE 0 ML IV SCH ×3 (06:23→21:36)
[2017-07-21 07:24] VITALS: BP_SYST 114; BP_SYST 117; BP_SYST 124; BP_DIAS 70; BP_DIAS 72; BP_DIAS 78; PULSE 76; PULSE 82; PULSE 90; TEMP 37; O2SAT 94
[2017-07-21 07:35] LABS: BASO % 0.1 %; BASO ABS # 0.01 K/uL (0-0.2); EOS % 0.2 %; EOS ABS # 0.02 K/uL (0-0.5); HEMATOCRIT 34.2 % (42-52); HEMOGLOBIN 11.3 g/dL (14.0-18.0); LYMPH % 7.7 %; LYMPH ABS # 0.82 K/uL (1.2-3.4); MEAN CELL VOLUME 88.8 fL (80-100); MEAN CORPUSCULAR HEMOGLOBIN 29.4 pg (25-34); MEAN PLATELET VOLUME 9.3 fL (7.4-10.4); MONO % 11.4 %; MONO ABS # 1.22 K/uL (0.11-0.59); NEUT % 79.7 %; NEUT ABS # 8.49 K/uL (1.4-6.5); PLATELET COUNT 391 K/uL (130-400); RED CELL DISTRIBUTION WIDTH CV 13.4 % (11.5-14.5); RED CELL DISTRIBUTION WIDTH SD 43.6 fL (36.4-46.3); WHITE BLOOD COUNT 10.66 K/uL (4.8-10.8)
[2017-07-21 08:06] LABS: CALCIUM 7.8 mg/dl (8.5-10.1); CREATININE 0.66 mg/dl (0.60-1.40); POTASSIUM 3.4 mmol/L (3.5-5.1)
[2017-07-21 08:15] VITALS: O2SAT 94
[2017-07-21] MEDS: PANTOprazole INJ 40 MG in SYRINGE 0 ML IV SCH ×2 (09:01→20:30)
--- NOTE | 2017-07-21 09:49 | Gastroenterology Progress Note ---
Progress Note Date of Service: Jul 21, 2017 Subjective Pt evaluation today including: conversation w/ patient, physical exam, chart review, lab review Pt was seen and evaluated, chart reviewed. No acute events overnight. Flex sig concerning for IBD vs c.diff. Was kept on cipro/flagyl and started on IV steroids. Notes some improvement overnight. has continued abd pain, generalized. unchanged with diet or BM. Has had 2 loose bloody BMs since procedure yesterday/ No black stools. No nausea, vomiting. No fever, chills, CP , SOB. No cardiac hx or hx heart failure. c.diff negative stool cx negative repeat stool cx pending CT: No evidence of bowel obstruction. No evidence of free air Extensive pancolonic bowel wall thickening with engorgement of the adjacentmesentery. The findings are indicative of a pancolitis Nonobstructing right renal calculusMildly prominent para-aortic lymph nodes possibly reactiveEmphysema EGD: none Colonoscopy: years ago, one polyp per pt Flex Sig 07/21/17: Diffuse severe inflammation was found in the entire examined colon consistent with inflammatory bowel disease vs. pseudomembranous colitis. Biopsied. Fluid aspiration performed Review of Systems Constitutional: No fever, No chills, No weakness, No fatigue Respiratory: + shortness of breath (chronic, not on O2), No cough Cardiac: No chest pain Abdomen: + pain, + diarrhea, + GI bleeding (2 episodes of BRBPR), No nausea, No vomiting, No constipation Skin: No rash, No jaundice Medications Current Inpatient Medications Medications (Trade) Dose Ordered Sig/John Route Start Time Stop Time Status Last Admin Dose Admin Ioversol (Optiray 320) 100 ml UD PRN IV 07/18/17 22:15 07/22/17 22:14 Acetaminophen (Tylenol Tab) 650 mg Q4H PRN PO 07/19/17 02:00 08/18/17 01:59 Al Hydrox/Mg Hydrox/Simethicone (Maalox Max Susp) 15 ml Q4H PRN PO 07/19/17 02:00 08/18/17 01:59 Ondansetron HCl (Zofran Inj) 4 mg Q6H PRN IV 07/19/17 02:00 08/18/17 01:59 07/20/17 15:30 4 MG Pantoprazole Sodium 40 mg/ Syringe 10 ml @ 5 mls/min DAILY@ IV 07/19/17 09:00 08/18/17 08:59 07/21/17 09:01 5 MLS/MIN Morphine Sulfate (MoRPHine SULFATE INJ) 3 mg Q3HWA PRN IV 07/19/17 02:00 08/02/17 01:59 07/19/17 08:14 3 MG Ciprofloxacin/ Dextrose 400 mg/ Prmx 200 ml @ 100 mls/hr Q12H IV 07/19/17 03:00 07/29/17 02:59 07/21/17 03:25 100 MLS/HR Metronidazole 500 mg/Prmx 100 ml @ 100 mls/hr Q8H IV 07/19/17 04:00 07/29/17 03:59 07/21/17 03:31 100 MLS/HR Methylprednisolone Sodium Succinate 20 mg/Syringe 0.32 ml @ 1.5 mls/min Q8 IV 07/20/17 15:00 08/19/17 14:59 07/21/17 06:23 1.5 MLS/MIN Objective Vital Signs Date Time Temp Pulse Resp B/P (MAP) Pulse Ox O2 Delivery O2 Flow Rate FiO2 07/21/17 07:24 37.0 76 16 114/70 (85) 94 82 117/72 (87) 90 124/78 (93) 07/20/17 23:45 95 136/93 (107) 07/20/17 23:44 95 120/81 (94) 07/20/17 23:43 91 116/69 (85) 07/20/17 23:32 37.1 86 12 99/58 (72) 93 Room Air 07/20/17 19:48 Room Air 07/20/17 17:34 37.4 07/20/17 15:01 37.4 98 16 134/77 (96) 96 Room Air 07/20/17 15:00 37.4 96 16 128/73 (91) 96 Room Air 07/20/17 14:58 37.4 95 16 122/73 (89) 97 Room Air 07/20/17 13:55 37.3 95 16 114/72 (86) 97 Room Air 07/20/17 13:10 97 20 128/7 (47) 97 Room Air 07/20/17 13:00 101 18 120/71 (87) 97 Room Air 07/20/17 12:50 91 18 104/69 (81) 97 Room Air 07/20/17 10:28 37.0 90 18 114/79 (91) 96 Room Air Physical Exam General Appearance: no apparent distress (two guards at bedside) Eyes: PERRL ENT: hearing grossly normal Neck: supple, trachea midline Respiratory/Chest: lungs clear, normal breath sounds Cardiovascular: regular rate, rhythm, no JVD Abdomen: normal bowel sounds, soft, no organomegaly, no pulsatile mass, + tenderness (diffuse, no rebound or guarding) Neurologic/Psych: alert, normal mood/affect, oriented x 3 Skin: normal color, no jaundice, warm/dry, no rash Laboratory Results Last 24 Hours Test 07/20/17 12:37 07/20/17 17:55 07/21/17 07:10 Potassium Level 3.6 mmol/L 3.4 mmol/L White Blood Count 10.66 K/uL Red Blood Count 3.85 M/uL Hemoglobin 11.3 g/dL Hematocrit 34.2 % Mean Corpuscular Volume 88.8 fL Mean Corpuscular Hemoglobin 29.4 pg Mean Corpuscular Hemoglobin Concent 33.0 g/dl Platelet Count 391 K/uL Mean Platelet Volume 9.3 fL Neutrophils (%) (Auto) 79.7 % Lymphocytes (%) (Auto) 7.7 % Monocytes (%) (Auto) 11.4 % Eosinophils (%) (Auto) 0.2 % Basophils (%) (Auto) 0.1 % Neutrophils # (Auto) 8.49 K/uL Lymphocytes # (Auto) 0.82 K/uL Monocytes # (Auto) 1.22 K/uL Eosinophils # (Auto) 0.02 K/uL Basophils # (Auto) 0.01 K/uL RDW Standard Deviation 43.6 fL RDW Coefficient of Variation 13.4 % Immature Granulocyte % (Auto) 0.9 % Immature Granulocyte # (Auto) 0.10 K/uL Sodium Level 140 mmol/L Chloride Level 108 mmol/L Carbon Dioxide Level 26 mmol/L Anion Gap 6.0 mmol/L Blood Urea Nitrogen 4 mg/dl Creatinine 0.66 mg/dl Est Creatinine Clear Calc Drug Dose 109.5 ml/min Estimated GFR () 127.0 Estimated GFR (Non- 109.6 BUN/Creatinine Ratio 5.5 Random Glucose 149 mg/dl Calcium Level 7.8 mg/dl Magnesium Level 2.3 mg/dl Assessment and Plan Patient is a 52 year old male w/ abd pain, diarrhea, rectal bleeding x 2 weeks. No history of IBD or family history of IBD. CT w/ pancolitis, c.diff negative, culture pending. Infectious vs inflammatory. S/p flex sig yesterday concerning for IBD. Started on IV steroids TID w/ some improvement overnight. Will add ESR/ CRP. Will need OP follow up ESR/CRP Acute Hep Quant Gold Continue solumedrol 20 TID IV Continue Cipro/Flagyl Follow up path Will need either Lialda/Humira started as OP GI to follow, please call with any acute changes, questions or concerns. Attg add: i interviewed and examined pt, reviewed chart and labs. Pt with carney colitis, mild improvement on steroids. Consider escalation to anti TNF therapy.
[2017-07-21] MEDS ORDERED: POTASSIUM CHLORIDE 20 MEQ TABCR PO ONE (13:01)
[2017-07-21 13:29] LABS: HEP C IGG 13 YRS+OLDER_RFLX NEG (NEG)
[2017-07-21 15:17] VITALS: BP 107/71; PULSE 92; TEMP 36.9; O2SAT 96
[2017-07-21 17:30] VITALS: BP 118/84; PULSE 102; O2SAT 98
--- NOTE | 2017-07-21 18:56 | Progress Note ---
Medicine Progress Note Date & Time of Visit: Jul 21, 2017 at 18:52. Subjective seen resting in bed, comfortable states his abdominal pain is somewhat better still has loose stools, occasionally with blood has mild dyspnea on ambulation denies chest pain, dizziness, nausea no other symptoms Objective Last 8 Hrs Date Time Temp Pulse Resp B/P (MAP) Pulse Ox O2 Delivery O2 Flow Rate FiO2 07/21/17 15:17 36.9 92 18 107/71 (83) 96 Room Air Physical Exam: General-oriented 3, not in distress, speaking in sentences, no effort Eyes- anicteric Neck- supple, no JVD Lungs- clear to auscultation bilaterally Heart- regular rhythm; no murmur, normal rate Abdomen- normal bowel sounds, soft, mildly tender, nondistended Extremities- no pretibial edema, no calf tenderness Neuro- alert, oriented x 3; no gross focal neurologic deficits Skin- warm & dry Laboratory Results: Last 24 Hours Test 07/21/17 07:10 07/21/17 11:54 White Blood Count 10.66 K/uL Red Blood Count 3.85 M/uL Hemoglobin 11.3 g/dL Hematocrit 34.2 % Mean Corpuscular Volume 88.8 fL Mean Corpuscular Hemoglobin 29.4 pg Mean Corpuscular Hemoglobin Concent 33.0 g/dl Platelet Count 391 K/uL Mean Platelet Volume 9.3 fL Neutrophils (%) (Auto) 79.7 % Lymphocytes (%) (Auto) 7.7 % Monocytes (%) (Auto) 11.4 % Eosinophils (%) (Auto) 0.2 % Basophils (%) (Auto) 0.1 % Neutrophils # (Auto) 8.49 K/uL Lymphocytes # (Auto) 0.82 K/uL Monocytes # (Auto) 1.22 K/uL Eosinophils # (Auto) 0.02 K/uL Basophils # (Auto) 0.01 K/uL RDW Standard Deviation 43.6 fL RDW Coefficient of Variation 13.4 % Immature Granulocyte % (Auto) 0.9 % Immature Granulocyte # (Auto) 0.10 K/uL Erythrocyte Sedimentation Rate 22 mm/hr Sodium Level 140 mmol/L Potassium Level 3.4 mmol/L Chloride Level 108 mmol/L Carbon Dioxide Level 26 mmol/L Anion Gap 6.0 mmol/L Blood Urea Nitrogen 4 mg/dl Creatinine 0.66 mg/dl Est Creatinine Clear Calc Drug Dose 109.5 ml/min Estimated GFR () 127.0 Estimated GFR (Non- 109.6 BUN/Creatinine Ratio 5.5 Random Glucose 149 mg/dl Calcium Level 7.8 mg/dl Magnesium Level 2.3 mg/dl C-Reactive Protein 16.30 mg/dl Hepatitis B Surface Antigen NEG Hepatitis C Antibody NEG Assessment & Plan ASSESSMENT AND PLAN: This is a 52-year-old male who presents with severe abdominal pain with diarrhea and blood in the stools and CAT scan shows pancolitis. HEMATOCHEZIA, POSSIBLY SECONDARY TO PANCOLITIS INFECTIOUS VERSUS INFLAMMATORY Hemoglobin decreased from 13-11, remains at ~11 C. difficile stool antigen test: Negative Stool cultures: Negative Evaluated by GI service s/p Sigmoidoscopy Pathology: Colitis Solumedrol started Cipro + Flagyl continued Continue Protonix IV twice daily Deep vein thrombosis prophylaxis, SCDs and TEDs. Disposition: Evaluation of hematochezia in progress Anticipate return to correctional facility when medically stable and cleared by GI service Current Inpatient Medications: Current Inpatient Medications Medications (Trade) Dose Ordered Sig/John Route Start Time Stop Time Status Last Admin Dose Admin Ioversol (Optiray 320) 100 ml UD PRN IV 07/18/17 22:15 07/22/17 22:14 Acetaminophen (Tylenol Tab) 650 mg Q4H PRN PO 07/19/17 02:00 08/18/17 01:59 Al Hydrox/Mg Hydrox/Simethicone (Maalox Max Susp) 15 ml Q4H PRN PO 07/19/17 02:00 08/18/17 01:59 Ondansetron HCl (Zofran Inj) 4 mg Q6H PRN IV 07/19/17 02:00 08/18/17 01:59 07/20/17 15:30 4 MG Pantoprazole Sodium 40 mg/ Syringe 10 ml @ 5 mls/min DAILY@ IV 07/19/17 09:00 08/18/17 08:59 07/21/17 09:01 5 MLS/MIN Morphine Sulfate (MoRPHine SULFATE INJ) 3 mg Q3HWA PRN IV 07/19/17 02:00 08/02/17 01:59 07/19/17 08:14 3 MG Ciprofloxacin/ Dextrose 400 mg/ Prmx 200 ml @ 100 mls/hr Q12H IV 07/19/17 03:00 07/29/17 02:59 07/21/17 14:17 100 MLS/HR Metronidazole 500 mg/Prmx 100 ml @ 100 mls/hr Q8H IV 07/19/17 04:00 07/29/17 03:59 07/21/17 12:16 100 MLS/HR Methylprednisolone Sodium Succinate 20 mg/Syringe 0.32 ml @ 1.5 mls/min Q8 IV 07/20/17 15:00 08/19/17 14:59 07/21/17 14:17 1.5 MLS/MIN Potassium Chloride (Klor-Con Tab) 40 meq QAM PO 07/22/17 09:00 08/21/17 08:59
[2017-07-21 22:51] VITALS: BP 123/72; PULSE 84; TEMP 37; O2SAT 93
[2017-07-22] MEDS: CIPROFLOXACIN / D5W 400 MG in PREMIXED IN D5W 200 ML IV SCH ×2 (02:25→14:20)
[2017-07-22] MEDS: METRONIDAZOLE / NSS 500 MG in PREMIXED NSS 100 ML IV SCH ×3 (03:45→20:57)
[2017-07-22] MEDS: METHYLPREDNISOLONE IV 20 MG in SYRINGE 0 ML IV SCH ×3 (05:52→21:41)
[2017-07-22 07:00] LABS: HEMATOCRIT 35.4 % (42-52); HEMOGLOBIN 11.8 g/dL (14.0-18.0); MEAN CELL VOLUME 89.6 fL (80-100); MEAN CORPUSCULAR HEMOGLOBIN 29.9 pg (25-34); MEAN CORPUSCULAR HGB CONC 33.3 g/dl (32-36); PLATELET COUNT 453 K/uL (130-400); RED CELL DISTRIBUTION WIDTH CV 13.7 % (11.5-14.5); RED CELL DISTRIBUTION WIDTH SD 45.3 fL (36.4-46.3); WHITE BLOOD COUNT 16.14 K/uL (4.8-10.8)
[2017-07-22 07:23] LABS: BASO % 0.1 %; BASO ABS # 0.02 K/uL (0-0.2); EOS % 0.1 %; EOS ABS # 0.01 K/uL (0-0.5); IG# 0.24 K/uL (0.00-0.02); LYMPH % 7.9 %; LYMPH ABS # 1.27 K/uL (1.2-3.4); MONO % 15.9 %; MONO ABS # 2.56 K/uL (0.11-0.59); NEUT % 74.5 %; NEUT ABS # 12.04 K/uL (1.4-6.5)
[2017-07-22 07:38] LABS: CALCIUM 7.7 mg/dl (8.5-10.1); CREATININE 0.85 mg/dl (0.60-1.40); POTASSIUM 3.9 mmol/L (3.5-5.1)
[2017-07-22 07:41] VITALS: BP 111/65; PULSE 80; TEMP 36.9; O2SAT 95
[2017-07-22 08:00] VITALS: O2SAT 95
[2017-07-22] MEDS: PANTOprazole INJ 40 MG in SYRINGE 0 ML IV SCH ×2 (09:15→20:57)
[2017-07-22] MEDS: POTASSIUM CHLORIDE 20 MEQ TABCR PO SCH (09:15)
--- NOTE | 2017-07-22 12:18 | PROGRESS NOTE ---
DATE: 07/22/2017 Gastroenterology progress note and cross coverage for [facility]. AGE: 52. SEX: Male. RACE: . I had the pleasure of seeing Geovany Talley at his bedside today. He still complains of abdominal pain, which he rates as a 4/10 on intensity and describes this is a chronic ache. He is still having multiple bloody bowel movements per day, stating that he has had three this morning. He states he is not feeling much better than when he presented to the ER. He has been on Solu-Medrol 20 mg IV t.i.d. and on Cipro and Flagyl therapy. His C. diff testing has so far been negative as well as other stool studies, though he does have many fecal leukocytes on stool testing. Biopsies from flexible sigmoidoscopy performed by Dr. Kim on 07/20/2017 showed severe chronic active colitis. He denies any hematemesis or melena. He further denies any nausea or vomiting. He has no further complaints. REVIEW OF SYSTEMS: Negative 10 system review other than pertinent positives listed in the HPI. PHYSICAL EXAMINATION: VITAL SIGNS: Temperature of 36.9, pulse 80, respirations 16, blood pressure 111/65, pulse ox 95% on room air. GENERAL: He is alert, oriented x3, ill appearing, no acute distress. HEAD: Normocephalic, atraumatic. EYES: Pupils equal, round. Extraocular muscles are intact. Sclerae nonicteric. CHEST: Clear to auscultation bilaterally. CARDIOVASCULAR SYSTEM: Regular rate and rhythm. ABDOMEN: Soft, tender throughout. Slightly distended. There are positive bowel sounds. There is no hepatosplenomegaly or stigmata of chronic liver disease. EXTREMITIES: No clubbing, cyanosis, or edema. LABORATORY STUDIES: Include a C-reactive protein of 16.3. Sodium 141, potassium 3.9, chloride 107, bicarbonate 28, BUN 8, creatinine 0.85, blood glucose level of 129. His H and H today is 11.8 and 35.4. His white blood cell count has increased to 16.14. His platelet count is 453. IMPRESSION: This is a 52-year-old male with hematochezia, abdominal pain and pancolitis on CT imaging with biopsies showing severe chronic active colitis. PLAN: At the present time, I would recommend that the patient be continued on methylprednisolone 20 mg IV q. 8 hours. He is also to be continued on Flagyl 500 mg IV q. 8 hours. and Cipro 400 mg IV q. 12 hours. He will be on a morphine 3 mg IV q. 3 hours. p.r.n. pain, Zofran 4 mg IV q. 6. p.r.n. nausea, Maalox 15 mL p.o. q. 4. p.r.n. dyspepsia, Protonix 40 mg IV b.i.d. I will follow his clinical course and make further recommendations as needed. He will clearly need outpatient followup and may require treatment with mesalamine versus biologic therapy in the future. Once again, thanks for allowing me to participate in the care of this patient. If you have any further questions, please do not hesitate in contacting me.
--- NOTE | 2017-07-22 12:41 | DIAGNOSTIC IMAGING REPORT ---
SINGLE VIEW CHEST CLINICAL HISTORY: Fluid overload. FINDINGS: An AP, portable, upright chest radiograph is compared to study dated 07/18/2018. The examination is degraded by portable technique and apical lordotic positioning. The cardiomediastinal silhouette is unremarkable. There is atherosclerotic calcification of the thoracic aorta. The pulmonary vasculature is noncongested. Chronic interstitial thickening is similar to previous. The lungs and pleural spaces are clear. No pneumothorax is seen. The skeletal structures are osteopenic. The bony thorax is grossly intact. IMPRESSION: No acute cardiopulmonary abnormality. Electronically signed by: Fredy Betancourt M.D. 07/22/2017 12:40 PM Dictated Date/Time: 07/22/2017 12:39 PM
[2017-07-22 15:12] VITALS: BP 116/73; PULSE 80; TEMP 37.1; O2SAT 95
--- NOTE | 2017-07-22 18:28 | Progress Note ---
Medicine Progress Note Date & Time of Visit: Jul 22, 2017 at 18:23. Subjective seen resting in bed, comfortable states abdominal cramping is still present but seems to be improving still had bright red blood with stools today no chest pain, dizziness, nausea reports mild dyspnea with exertion no other symptoms Objective Last 8 Hrs Date Time Temp Pulse Resp B/P (MAP) Pulse Ox O2 Delivery O2 Flow Rate FiO2 07/22/17 15:12 37.1 80 18 116/73 (87) 95 Room Air Physical Exam: General-oriented 3, not in distress, speaking in sentences, no effort Neck- no JVD Lungs- mild rales at the right base, clear on the left no wheezing Heart- regular rhythm; no murmur, normal rate Abdomen- normal bowel sounds, soft, non tender, nondistended Extremities- no pretibial edema, no calf tenderness Neuro- alert, oriented x 3; no gross focal neurologic deficits Skin- warm & dry Laboratory Results: Last 24 Hours Test 07/22/17 06:38 White Blood Count 16.14 K/uL Red Blood Count 3.95 M/uL Hemoglobin 11.8 g/dL Hematocrit 35.4 % Mean Corpuscular Volume 89.6 fL Mean Corpuscular Hemoglobin 29.9 pg Mean Corpuscular Hemoglobin Concent 33.3 g/dl Platelet Count 453 K/uL Mean Platelet Volume 9.0 fL Neutrophils (%) (Auto) 74.5 % Lymphocytes (%) (Auto) 7.9 % Monocytes (%) (Auto) 15.9 % Eosinophils (%) (Auto) 0.1 % Basophils (%) (Auto) 0.1 % Neutrophils # (Auto) 12.04 K/uL Lymphocytes # (Auto) 1.27 K/uL Monocytes # (Auto) 2.56 K/uL Eosinophils # (Auto) 0.01 K/uL Basophils # (Auto) 0.02 K/uL RDW Standard Deviation 45.3 fL RDW Coefficient of Variation 13.7 % Immature Granulocyte % (Auto) 1.5 % Immature Granulocyte # (Auto) 0.24 K/uL Toxic Granulation 1+ Sodium Level 141 mmol/L Potassium Level 3.9 mmol/L Chloride Level 107 mmol/L Carbon Dioxide Level 28 mmol/L Anion Gap 6.0 mmol/L Blood Urea Nitrogen 8 mg/dl Creatinine 0.85 mg/dl Est Creatinine Clear Calc Drug Dose 85.0 ml/min Estimated GFR () 114.5 Estimated GFR (Non- 98.8 BUN/Creatinine Ratio 9.8 Random Glucose 129 mg/dl Calcium Level 7.7 mg/dl Magnesium Level 2.4 mg/dl Assessment & Plan ASSESSMENT AND PLAN: This is a 52-year-old male who presents with severe abdominal pain with diarrhea and blood in the stools and CAT scan shows pancolitis. HEMATOCHEZIA, POSSIBLY SECONDARY TO PANCOLITIS INFECTIOUS VERSUS INFLAMMATORY Hemoglobin decreased from 13-11, remains at ~11 C. difficile stool antigen test: Negative Stool cultures: Negative Evaluated by GI service s/p Sigmoidoscopy Pathology: Severe Colitis gradually improving, Hg stable continue Solumedrol Cipro + Flagyl continued Continue Protonix IV twice daily appreciate GI service recommendations MILD DYSPNEA CXR: no acute process incentive spirometry Deep vein thrombosis prophylaxis, SCDs and TEDs. Disposition: Evaluation of hematochezia in progress Anticipate return to correctional facility when medically stable and cleared by GI service Current Inpatient Medications: Current Inpatient Medications Medications (Trade) Dose Ordered Sig/John Route Start Time Stop Time Status Last Admin Dose Admin Ioversol (Optiray 320) 100 ml UD PRN IV 07/18/17 22:15 07/22/17 22:14 Acetaminophen (Tylenol Tab) 650 mg Q4H PRN PO 07/19/17 02:00 08/18/17 01:59 Al Hydrox/Mg Hydrox/Simethicone (Maalox Max Susp) 15 ml Q4H PRN PO 07/19/17 02:00 08/18/17 01:59 Ondansetron HCl (Zofran Inj) 4 mg Q6H PRN IV 07/19/17 02:00 08/18/17 01:59 07/20/17 15:30 4 MG Pantoprazole Sodium 40 mg/ Syringe 10 ml @ 5 mls/min DAILY@ IV 07/19/17 09:00 08/18/17 08:59 07/22/17 09:15 5 MLS/MIN Morphine Sulfate (MoRPHine SULFATE INJ) 3 mg Q3HWA PRN IV 07/19/17 02:00 08/02/17 01:59 07/19/17 08:14 3 MG Ciprofloxacin/ Dextrose 400 mg/ Prmx 200 ml @ 100 mls/hr Q12H IV 07/19/17 03:00 07/29/17 02:59 07/22/17 14:20 100 MLS/HR Metronidazole 500 mg/Prmx 100 ml @ 100 mls/hr Q8H IV 07/19/17 04:00 07/29/17 03:59 07/22/17 11:58 100 MLS/HR Methylprednisolone Sodium Succinate 20 mg/Syringe 0.32 ml @ 1.5 mls/min Q8 IV 07/20/17 15:00 08/19/17 14:59 07/22/17 14:20 1.5 MLS/MIN Potassium Chloride (Klor-Con Tab) 40 meq QAM PO 07/22/17 09:00 08/21/17 08:59 07/22/17 09:15 40 MEQ
[2017-07-22 22:57] VITALS: BP 109/55; PULSE 80; TEMP 37.1; O2SAT 94
[2017-07-23] MEDS: CIPROFLOXACIN / D5W 400 MG in PREMIXED IN D5W 200 ML IV SCH ×2 (03:19→14:42)
[2017-07-23] MEDS: METRONIDAZOLE / NSS 500 MG in PREMIXED NSS 100 ML IV SCH ×3 (03:19→21:24)
[2017-07-23] MEDS: METHYLPREDNISOLONE IV 20 MG in SYRINGE 0 ML IV SCH ×3 (05:27→21:24)
[2017-07-23 07:38] VITALS: BP 127/70; PULSE 75; TEMP 36.9; O2SAT 95
[2017-07-23] MEDS: POTASSIUM CHLORIDE 20 MEQ TABCR PO SCH (08:41)
[2017-07-23] MEDS: PANTOprazole INJ 40 MG in SYRINGE 0 ML IV SCH (08:41)
[2017-07-23 12:39] LABS: HEMATOCRIT 39.7 % (42-52); HEMOGLOBIN 13.4 g/dL (14.0-18.0); MEAN CELL VOLUME 89.8 fL (80-100); MEAN CORPUSCULAR HEMOGLOBIN 30.3 pg (25-34); MEAN CORPUSCULAR HGB CONC 33.8 g/dl (32-36); MEAN PLATELET VOLUME 9.2 fL (7.4-10.4); NUCLEATED RED BLOOD CELL ABS 0.07 K/uL (0-0); PLATELET COUNT 541 K/uL (130-400); RED CELL DISTRIBUTION WIDTH CV 13.9 % (11.5-14.5); RED CELL DISTRIBUTION WIDTH SD 45.3 fL (36.4-46.3); WHITE BLOOD COUNT 22.83 K/uL (4.8-10.8)
[2017-07-23 13:07] LABS: BASO % 0.3 %; BASO ABS # 0.07 K/uL (0-0.2); IG# 0.66 K/uL (0.00-0.02); LYMPH % 10.1 %; MONO % 16.3 %; MONO ABS # 3.73 K/uL (0.11-0.59); NEUT % 70.4 %; NEUT ABS # 16.07 K/uL (1.4-6.5)
[2017-07-23 13:10] LABS: CALCIUM 8.3 mg/dl (8.5-10.1); CREATININE 0.9 mg/dl (0.60-1.40); POTASSIUM 4.3 mmol/L (3.5-5.1)
--- NOTE | 2017-07-23 14:27 | Progress Note ---
Medicine Progress Note Date & Time of Visit: Jul 23, 2017 at 14:25. Subjective seen resting in bed, comfortable states his abdominal pain continues to improve had 2-3 BMs since this AM, soft, still has some streaks of blood feels tired no other symptoms Objective Last 8 Hrs Date Time Temp Pulse Resp B/P (MAP) Pulse Ox O2 Delivery O2 Flow Rate FiO2 07/23/17 07:50 Room Air 07/23/17 07:38 36.9 75 16 127/70 (89) 95 Room Air Physical Exam: General-oriented 3, not in distress, speaking in sentences, no effort Neck- no JVD Lungs- clear breath sounds bilaterally, no rales/wheezes Heart- regular rhythm; no murmur, normal rate Abdomen- normal bowel sounds, soft, non tender, nondistended Extremities- no pretibial edema, no calf tenderness Neuro- alert, oriented x 3; no gross focal neurologic deficits Skin- warm & dry Laboratory Results: Last 24 Hours Test 07/23/17 12:19 White Blood Count 22.83 K/uL Red Blood Count 4.42 M/uL Hemoglobin 13.4 g/dL Hematocrit 39.7 % Mean Corpuscular Volume 89.8 fL Mean Corpuscular Hemoglobin 30.3 pg Mean Corpuscular Hemoglobin Concent 33.8 g/dl Platelet Count 541 K/uL Mean Platelet Volume 9.2 fL Neutrophils (%) (Auto) 70.4 % Lymphocytes (%) (Auto) 10.1 % Monocytes (%) (Auto) 16.3 % Eosinophils (%) (Auto) 0.0 % Basophils (%) (Auto) 0.3 % Neutrophils # (Auto) 16.07 K/uL Lymphocytes # (Auto) 2.30 K/uL Monocytes # (Auto) 3.73 K/uL Eosinophils # (Auto) 0.00 K/uL Basophils # (Auto) 0.07 K/uL RDW Standard Deviation 45.3 fL RDW Coefficient of Variation 13.9 % Immature Granulocyte % (Auto) 2.9 % Immature Granulocyte # (Auto) 0.66 K/uL Nucleated RBC Absolute Count (auto) 0.07 K/uL Nucleated Red Blood Cells % 0.3 % Sodium Level 137 mmol/L Potassium Level 4.3 mmol/L Chloride Level 105 mmol/L Carbon Dioxide Level 28 mmol/L Anion Gap 4.0 mmol/L Blood Urea Nitrogen 13 mg/dl Creatinine 0.90 mg/dl Est Creatinine Clear Calc Drug Dose 80.3 ml/min Estimated GFR () 111.8 Estimated GFR (Non- 96.5 BUN/Creatinine Ratio 14.5 Random Glucose 122 mg/dl Calcium Level 8.3 mg/dl Assessment & Plan ASSESSMENT AND PLAN: This is a 52-year-old male who presents with severe abdominal pain with diarrhea and blood in the stools and CAT scan shows pancolitis. HEMATOCHEZIA, POSSIBLY SECONDARY TO PANCOLITIS INFECTIOUS VERSUS INFLAMMATORY Hemoglobin decreased from 13-11 C. difficile stool antigen test: Negative Stool cultures: Negative Evaluated by GI service s/p Sigmoidoscopy Pathology: Severe Colitis hematochezia and abdominal pain improving Hg stable continue Solumedrol Cipro + Flagyl Protonix daily appreciate GI service recommendations MILD DYSPNEA CXR: no acute process incentive spirometry Deep vein thrombosis prophylaxis, SCDs and TEDs. Disposition: Evaluation of hematochezia in progress Anticipate return to correctional facility when medically stable and cleared by GI service Current Inpatient Medications: Current Inpatient Medications Medications (Trade) Dose Ordered Sig/John Route Start Time Stop Time Status Last Admin Dose Admin Acetaminophen (Tylenol Tab) 650 mg Q4H PRN PO 07/19/17 02:00 08/18/17 01:59 Al Hydrox/Mg Hydrox/Simethicone (Maalox Max Susp) 15 ml Q4H PRN PO 07/19/17 02:00 08/18/17 01:59 Ondansetron HCl (Zofran Inj) 4 mg Q6H PRN IV 07/19/17 02:00 08/18/17 01:59 07/20/17 15:30 4 MG Pantoprazole Sodium 40 mg/ Syringe 10 ml @ 5 mls/min DAILY@ IV 07/19/17 09:00 08/18/17 08:59 07/23/17 08:41 5 MLS/MIN Morphine Sulfate (MoRPHine SULFATE INJ) 3 mg Q3HWA PRN IV 07/19/17 02:00 08/02/17 01:59 07/19/17 08:14 3 MG Ciprofloxacin/ Dextrose 400 mg/ Prmx 200 ml @ 100 mls/hr Q12H IV 07/19/17 03:00 07/29/17 02:59 07/23/17 03:19 100 MLS/HR Metronidazole 500 mg/Prmx 100 ml @ 100 mls/hr Q8H IV 07/19/17 04:00 07/29/17 03:59 07/23/17 13:34 100 MLS/HR Methylprednisolone Sodium Succinate 20 mg/Syringe 0.32 ml @ 1.5 mls/min Q8 IV 07/20/17 15:00 08/19/17 14:59 07/23/17 13:34 1.5 MLS/MIN Potassium Chloride (Klor-Con Tab) 40 meq QAM PO 07/22/17 09:00 08/21/17 08:59 07/23/17 08:41 40 MEQ
[2017-07-23 15:24] VITALS: BP 111/67; PULSE 88; TEMP 37; O2SAT 94
[2017-07-23 22:34] LABS: HEPATITIS A IGM TC 51813E NON-REACTIVE (NON-REACTIVE); HEPATITIS B CORE IGM TC51854R NON-REACTIVE (NON-REACTIVE); HEPATITIS BE ANTIBODY TC 556 Nonreactive; HEPATITIS BE ANTIGEN TC 555 Nonreactive
[2017-07-23 22:50] VITALS: BP 111/67; PULSE 78; TEMP 37.1; O2SAT 96
[2017-07-24] MEDS: CIPROFLOXACIN / D5W 400 MG in PREMIXED IN D5W 200 ML IV SCH ×2 (03:27→15:51)
[2017-07-24] MEDS: METRONIDAZOLE / NSS 500 MG in PREMIXED NSS 100 ML IV SCH ×3 (03:31→19:35)
[2017-07-24] MEDS: METHYLPREDNISOLONE IV 20 MG in SYRINGE 0 ML IV SCH ×3 (05:38→22:01)
[2017-07-24 06:41] LABS: HEMATOCRIT 37.2 % (42-52); HEMOGLOBIN 12.2 g/dL (14.0-18.0); MEAN CELL VOLUME 89.6 fL (80-100); MEAN CORPUSCULAR HEMOGLOBIN 29.4 pg (25-34); MEAN CORPUSCULAR HGB CONC 32.8 g/dl (32-36); NUCLEATED RED BLOOD CELL ABS 0.08 K/uL (0-0); PLATELET COUNT 409 K/uL (130-400); RED CELL DISTRIBUTION WIDTH CV 13.9 % (11.5-14.5); RED CELL DISTRIBUTION WIDTH SD 45.4 fL (36.4-46.3); WHITE BLOOD COUNT 17.71 K/uL (4.8-10.8)
[2017-07-24 07:10] LABS: CALCIUM 8.1 mg/dl (8.5-10.1); CREATININE 0.89 mg/dl (0.60-1.40); POTASSIUM 4.1 mmol/L (3.5-5.1)
[2017-07-24 07:20] VITALS: BP 139/84; PULSE 74; TEMP 37; O2SAT 94
[2017-07-24 07:28] LABS: BASO % 0.3 %; BASO ABS # 0.06 K/uL (0-0.2); EOS % 0.1 %; EOS ABS # 0.01 K/uL (0-0.5); IG# 0.43 K/uL (0.00-0.02); LYMPH % 13.2 %; LYMPH ABS # 2.33 K/uL (1.2-3.4); MONO % 14.1 %; NEUT % 69.9 %; NEUT ABS # 12.38 K/uL (1.4-6.5)
[2017-07-24] MEDS: PANTOprazole SOD 40 MG TAB PO SCH (10:24)
--- NOTE | 2017-07-24 10:27 | Gastroenterology Progress Note ---
Progress Note Date of Service: Jul 24, 2017 Subjective Pt evaluation today including: conversation w/ patient, physical exam, chart review, lab review, review of inpatient medication list Pt reports still having abd cramping, stool urgency after eating and bloody stools. WBC 17, currently on Cipro, Flagyl and IV steroids. H/H stable Review of Systems Constitutional: No fever, No chills Respiratory: No cough, No shortness of breath Cardiac: No chest pain Abdomen: + pain, + diarrhea, + GI bleeding, No nausea, No vomiting Medications Current Inpatient Medications Medications (Trade) Dose Ordered Sig/John Route Start Time Stop Time Status Last Admin Dose Admin Acetaminophen (Tylenol Tab) 650 mg Q4H PRN PO 07/19/17 02:00 08/18/17 01:59 Al Hydrox/Mg Hydrox/Simethicone (Maalox Max Susp) 15 ml Q4H PRN PO 07/19/17 02:00 08/18/17 01:59 Ondansetron HCl (Zofran Inj) 4 mg Q6H PRN IV 07/19/17 02:00 08/18/17 01:59 07/20/17 15:30 4 MG Morphine Sulfate (MoRPHine SULFATE INJ) 3 mg Q3HWA PRN IV 07/19/17 02:00 08/02/17 01:59 07/19/17 08:14 3 MG Ciprofloxacin/ Dextrose 400 mg/ Prmx 200 ml @ 100 mls/hr Q12H IV 07/19/17 03:00 07/29/17 02:59 07/24/17 03:27 100 MLS/HR Metronidazole 500 mg/Prmx 100 ml @ 100 mls/hr Q8H IV 07/19/17 04:00 07/29/17 03:59 07/24/17 03:31 100 MLS/HR Methylprednisolone Sodium Succinate 20 mg/Syringe 0.32 ml @ 1.5 mls/min Q8 IV 07/20/17 15:00 08/19/17 14:59 07/24/17 05:38 1.5 MLS/MIN Pantoprazole Sodium (Protonix Tab) 40 mg QAM PO 07/24/17 09:00 08/23/17 08:59 Dicyclomine HCl (Bentyl Cap) 10 mg TID PO 07/24/17 14:00 08/23/17 13:59 Objective Vital Signs Date Time Temp Pulse Resp B/P (MAP) Pulse Ox O2 Delivery O2 Flow Rate FiO2 07/24/17 07:20 37.0 74 16 139/84 (102) 94 Room Air 07/23/17 23:50 Room Air 07/23/17 22:50 37.1 78 16 111/67 (82) 96 Room Air 07/23/17 20:00 Room Air 07/23/17 15:30 Room Air 07/23/17 15:24 37.0 88 16 111/67 (82) 94 Room Air Physical Exam General Appearance: WD/WN, no apparent distress Eyes: normal inspection, PERRL, EOMI Neck: supple, no JVD, trachea midline Respiratory/Chest: normal breath sounds, no respiratory distress, no accessory muscle use Cardiovascular: regular rate, rhythm, no gallop, no murmur Abdomen: normal bowel sounds, soft, + tenderness (diffuse), + pertinent finding (semi formed stool, w blood noted on commode) Extremities: normal inspection, no pedal edema, no calf tenderness Neurologic/Psych: alert, normal mood/affect, oriented x 3 Skin: normal color, no jaundice, no rash Laboratory Results Last 24 Hours Test 07/23/17 12:19 07/24/17 06:22 White Blood Count 22.83 K/uL 17.71 K/uL Red Blood Count 4.42 M/uL 4.15 M/uL Hemoglobin 13.4 g/dL 12.2 g/dL Hematocrit 39.7 % 37.2 % Mean Corpuscular Volume 89.8 fL 89.6 fL Mean Corpuscular Hemoglobin 30.3 pg 29.4 pg Mean Corpuscular Hemoglobin Concent 33.8 g/dl 32.8 g/dl Platelet Count 541 K/uL 409 K/uL Mean Platelet Volume 9.2 fL 9.0 fL Neutrophils (%) (Auto) 70.4 % 69.9 % Lymphocytes (%) (Auto) 10.1 % 13.2 % Monocytes (%) (Auto) 16.3 % 14.1 % Eosinophils (%) (Auto) 0.0 % 0.1 % Basophils (%) (Auto) 0.3 % 0.3 % Neutrophils # (Auto) 16.07 K/uL 12.38 K/uL Lymphocytes # (Auto) 2.30 K/uL 2.33 K/uL Monocytes # (Auto) 3.73 K/uL 2.50 K/uL Eosinophils # (Auto) 0.00 K/uL 0.01 K/uL Basophils # (Auto) 0.07 K/uL 0.06 K/uL RDW Standard Deviation 45.3 fL 45.4 fL RDW Coefficient of Variation 13.9 % 13.9 % Immature Granulocyte % (Auto) 2.9 % 2.4 % Immature Granulocyte # (Auto) 0.66 K/uL 0.43 K/uL Nucleated RBC Absolute Count (auto) 0.07 K/uL 0.08 K/uL Nucleated Red Blood Cells % 0.3 % 0.5 % Sodium Level 137 mmol/L 136 mmol/L Potassium Level 4.3 mmol/L 4.1 mmol/L Chloride Level 105 mmol/L 103 mmol/L Carbon Dioxide Level 28 mmol/L 30 mmol/L Anion Gap 4.0 mmol/L 3.0 mmol/L Blood Urea Nitrogen 13 mg/dl 14 mg/dl Creatinine 0.90 mg/dl 0.89 mg/dl Est Creatinine Clear Calc Drug Dose 80.3 ml/min 81.2 ml/min Estimated GFR () 111.8 112.3 Estimated GFR (Non- 96.5 96.9 BUN/Creatinine Ratio 14.5 15.9 Random Glucose 122 mg/dl 117 mg/dl Calcium Level 8.3 mg/dl 8.1 mg/dl Toxic Granulation 3+ Assessment and Plan Pt is a 52 y/o male inmate currently admitted for hematochezia, abd pain, pancolitis on CT; flex sigmoidscopy on 07/20/17 concerning for IBD vs infectious colitis. His CRP is elevated at 16. WBC 17 while on Cipro/Flagyl, IV steroids. Stool cx, Cdiff, Giardia so far negative. He is still having diffuse abd pain, stool urgency, rectal bleeding. - Add Bentyl 10mg TID - Continue Cipro/Flagyl, IV steroids Attg add: I interviewed and examined pt, reviewed chart and labs. Pt with persistent diarrhea on d 3 steroids, although improved from admission. Bx = "acute on chronic colitis, no arch distortion noted." Will cont to follow; check CRP, and consider TNF.
[2017-07-24 13:09] LABS: QUANTIF MITOGEN-NIL 9.94 IU/ML; QUANTIFERON NEGATIVE (NEGATIVE); QUANTIFERON NIL 0.03 IU/ML
[2017-07-24] MEDS: DICYCLOMINE HCL 10 MG CAP PO SCH ×2 (13:58→22:01)
[2017-07-24 15:20] VITALS: BP 117/69; PULSE 87; TEMP 36.9; O2SAT 96
--- NOTE | 2017-07-24 19:40 | Progress Note ---
Medicine Progress Note Date & Time of Visit: Jul 24, 2017 at 19:34. Subjective seen resting in bed, comfortable states abdominal cramps still present, slightly better had about 3 BMs, soft, blood still noted no nausea denies chest pain, dyspnea, palpitations, dizziness no other symptoms Objective Last 8 Hrs Date Time Temp Pulse Resp B/P (MAP) Pulse Ox O2 Delivery O2 Flow Rate FiO2 07/24/17 15:20 36.9 87 18 117/69 (85) 96 Room Air Physical Exam: General-oriented 3, not in distress, speaking in sentences, no effort Neck- no JVD Lungs- clear breath sounds BL , no rales Heart- regular rhythm; no murmur, normal rate Abdomen- normal bowel sounds, soft, mildly tender, nondistended Extremities- no pretibial edema, no calf tenderness Neuro- alert, oriented x 3; no gross focal neurologic deficits Skin- warm & dry Laboratory Results: Last 24 Hours Test 07/24/17 06:22 07/24/17 12:36 07/24/17 14:18 White Blood Count 17.71 K/uL Red Blood Count 4.15 M/uL Hemoglobin 12.2 g/dL Hematocrit 37.2 % Mean Corpuscular Volume 89.6 fL Mean Corpuscular Hemoglobin 29.4 pg Mean Corpuscular Hemoglobin Concent 32.8 g/dl Platelet Count 409 K/uL Mean Platelet Volume 9.0 fL Neutrophils (%) (Auto) 69.9 % Lymphocytes (%) (Auto) 13.2 % Monocytes (%) (Auto) 14.1 % Eosinophils (%) (Auto) 0.1 % Basophils (%) (Auto) 0.3 % Neutrophils # (Auto) 12.38 K/uL Lymphocytes # (Auto) 2.33 K/uL Monocytes # (Auto) 2.50 K/uL Eosinophils # (Auto) 0.01 K/uL Basophils # (Auto) 0.06 K/uL RDW Standard Deviation 45.4 fL RDW Coefficient of Variation 13.9 % Immature Granulocyte % (Auto) 2.4 % Immature Granulocyte # (Auto) 0.43 K/uL Nucleated RBC Absolute Count (auto) 0.08 K/uL Nucleated Red Blood Cells % 0.5 % Toxic Granulation 3+ Sodium Level 136 mmol/L Potassium Level 4.1 mmol/L Chloride Level 103 mmol/L Carbon Dioxide Level 30 mmol/L Anion Gap 3.0 mmol/L Blood Urea Nitrogen 14 mg/dl Creatinine 0.89 mg/dl Est Creatinine Clear Calc Drug Dose 81.2 ml/min Estimated GFR () 112.3 Estimated GFR (Non- 96.9 BUN/Creatinine Ratio 15.9 Random Glucose 117 mg/dl Calcium Level 8.1 mg/dl C-Reactive Protein 1.61 mg/dl Hepatitis B Surface Antibody POS HIV (1&2) Ab and P24 Ag, 4th Gener NEG Assessment & Plan This is a 52-year-old male who presents with severe abdominal pain with diarrhea and blood in the stools and CAT scan shows pancolitis. HEMATOCHEZIA, POSSIBLY SECONDARY TO PANCOLITIS: INFECTIOUS VERSUS INFLAMMATORY ETIOLOGY Hemoglobin decreased from 13-11 C. difficile stool antigen test: Negative Stool cultures: Negative Evaluated by GI service s/p Sigmoidoscopy 07/20/17 Pathology: Severe Colitis Solumedrol 20mg IV q8h started hematochezia and abdominal pain with slow improvement Hg stable at around 11 continue Solumedrol 20mg IV q8h IV Cipro + Flagyl Protonix daily appreciate GI service recommendations MILD DYSPNEA, Improving comfortable on room air, mostly with exertion no signs of overt volume overload CXR: no acute process incentive spirometry monitor Deep vein thrombosis prophylaxis, SCDs and TEDs in light of hematochezia Disposition: Evaluation of hematochezia/abdominal pain in progress Anticipate to return to correctional facility when medically stable and cleared by GI service Current Inpatient Medications: Current Inpatient Medications Medications (Trade) Dose Ordered Sig/John Route Start Time Stop Time Status Last Admin Dose Admin Acetaminophen (Tylenol Tab) 650 mg Q4H PRN PO 07/19/17 02:00 08/18/17 01:59 Al Hydrox/Mg Hydrox/Simethicone (Maalox Max Susp) 15 ml Q4H PRN PO 07/19/17 02:00 08/18/17 01:59 Ondansetron HCl (Zofran Inj) 4 mg Q6H PRN IV 07/19/17 02:00 08/18/17 01:59 07/20/17 15:30 4 MG Morphine Sulfate (MoRPHine SULFATE INJ) 3 mg Q3HWA PRN IV 07/19/17 02:00 08/02/17 01:59 07/19/17 08:14 3 MG Ciprofloxacin/ Dextrose 400 mg/ Prmx 200 ml @ 100 mls/hr Q12H IV 07/19/17 03:00 07/29/17 02:59 07/24/17 15:51 100 MLS/HR Metronidazole 500 mg/Prmx 100 ml @ 100 mls/hr Q8H IV 07/19/17 04:00 07/29/17 03:59 07/24/17 12:13 100 MLS/HR Methylprednisolone Sodium Succinate 20 mg/Syringe 0.32 ml @ 1.5 mls/min Q8 IV 07/20/17 15:00 08/19/17 14:59 07/24/17 13:58 1.5 MLS/MIN Pantoprazole Sodium (Protonix Tab) 40 mg QAM PO 07/24/17 09:00 08/23/17 08:59 07/24/17 10:24 40 MG Dicyclomine HCl (Bentyl Cap) 10 mg TID PO 07/24/17 14:00 08/23/17 13:59 07/24/17 13:58 10 MG
[2017-07-24 23:25] VITALS: BP 119/70; PULSE 72; TEMP 37; O2SAT 96
[2017-07-25] MEDS: CIPROFLOXACIN / D5W 400 MG in PREMIXED IN D5W 200 ML IV SCH (02:35)
[2017-07-25] MEDS: METRONIDAZOLE / NSS 500 MG in PREMIXED NSS 100 ML IV SCH ×2 (04:38→12:42)
[2017-07-25] MEDS: METHYLPREDNISOLONE IV 20 MG in SYRINGE 0 ML IV SCH (05:44)
[2017-07-25 07:14] VITALS: BP 133/78; PULSE 79; TEMP 36.8; O2SAT 96
[2017-07-25 07:57] LABS: BASO % 0.1 %; BASO ABS # 0.03 K/uL (0-0.2); EOS ABS # 0.01 K/uL (0-0.5); HEMATOCRIT 37.5 % (42-52); HEMOGLOBIN 12.7 g/dL (14.0-18.0); IG# 0.32 K/uL (0.00-0.02); LYMPH % 8.3 %; LYMPH ABS # 1.68 K/uL (1.2-3.4); MEAN CELL VOLUME 89.9 fL (80-100); MEAN CORPUSCULAR HEMOGLOBIN 30.5 pg (25-34); MEAN CORPUSCULAR HGB CONC 33.9 g/dl (32-36); MEAN PLATELET VOLUME 9.3 fL (7.4-10.4); MONO % 9.2 %; MONO ABS # 1.86 K/uL (0.11-0.59); NEUT % 80.8 %; NEUT ABS # 16.27 K/uL (1.4-6.5); PLATELET COUNT 424 K/uL (130-400); RED CELL DISTRIBUTION WIDTH CV 13.9 % (11.5-14.5); RED CELL DISTRIBUTION WIDTH SD 45.3 fL (36.4-46.3); WHITE BLOOD COUNT 20.17 K/uL (4.8-10.8)
[2017-07-25 08:28] LABS: CALCIUM 7.9 mg/dl (8.5-10.1); CREATININE 0.84 mg/dl (0.60-1.40); POTASSIUM 4.2 mmol/L (3.5-5.1)
[2017-07-25] MEDS: PANTOprazole SOD 40 MG TAB PO SCH (08:54)
[2017-07-25] MEDS: DICYCLOMINE HCL 10 MG CAP PO SCH ×3 (08:54→20:13)
--- NOTE | 2017-07-25 09:32 | Gastroenterology Progress Note ---
Progress Note Date of Service: Jul 25, 2017 Subjective Pt evaluation today including: conversation w/ patient, physical exam, chart review, lab review, review of inpatient medication list Pt had 2 BMs this AM - stool forming up but still w rectal bleeding, and abd pain. WBC up to 20K. Review of Systems Constitutional: No fever, No chills Respiratory: No cough, No shortness of breath Cardiac: No chest pain Abdomen: + pain, + GI bleeding, No nausea, No vomiting Medications Current Inpatient Medications Medications (Trade) Dose Ordered Sig/John Route Start Time Stop Time Status Last Admin Dose Admin Acetaminophen (Tylenol Tab) 650 mg Q4H PRN PO 07/19/17 02:00 08/18/17 01:59 Al Hydrox/Mg Hydrox/Simethicone (Maalox Max Susp) 15 ml Q4H PRN PO 07/19/17 02:00 08/18/17 01:59 Ondansetron HCl (Zofran Inj) 4 mg Q6H PRN IV 07/19/17 02:00 08/18/17 01:59 07/20/17 15:30 4 MG Morphine Sulfate (MoRPHine SULFATE INJ) 3 mg Q3HWA PRN IV 07/19/17 02:00 08/02/17 01:59 07/19/17 08:14 3 MG Ciprofloxacin/ Dextrose 400 mg/ Prmx 200 ml @ 100 mls/hr Q12H IV 07/19/17 03:00 07/29/17 02:59 07/25/17 02:35 100 MLS/HR Metronidazole 500 mg/Prmx 100 ml @ 100 mls/hr Q8H IV 07/19/17 04:00 07/29/17 03:59 07/25/17 04:38 100 MLS/HR Methylprednisolone Sodium Succinate 20 mg/Syringe 0.32 ml @ 1.5 mls/min Q8 IV 07/20/17 15:00 08/19/17 14:59 07/25/17 05:44 1.5 MLS/MIN Pantoprazole Sodium (Protonix Tab) 40 mg QAM PO 07/24/17 09:00 08/23/17 08:59 07/25/17 08:54 40 MG Dicyclomine HCl (Bentyl Cap) 10 mg TID PO 07/24/17 14:00 08/23/17 13:59 07/25/17 08:54 10 MG Objective Vital Signs Date Time Temp Pulse Resp B/P (MAP) Pulse Ox O2 Delivery O2 Flow Rate FiO2 07/25/17 07:25 Room Air 07/25/17 07:14 36.8 79 16 133/78 (96) 96 Room Air 07/24/17 23:25 37.0 72 16 119/70 (86) 96 Room Air 07/24/17 19:40 Room Air 07/24/17 15:20 36.9 87 18 117/69 (85) 96 Room Air Physical Exam General Appearance: + mild distress (reports some abd pain ) Eyes: normal inspection, PERRL, EOMI Neck: supple, no JVD, trachea midline Respiratory/Chest: normal breath sounds, no respiratory distress, no accessory muscle use Cardiovascular: regular rate, rhythm, no gallop, no murmur Abdomen: normal bowel sounds, soft, + tenderness (mid area) Extremities: normal inspection, no pedal edema, no calf tenderness Neurologic/Psych: alert, normal mood/affect, oriented x 3 Skin: normal color, no jaundice, no rash Laboratory Results Last 24 Hours Test 07/24/17 12:36 07/24/17 14:18 07/25/17 07:40 C-Reactive Protein 1.61 mg/dl Hepatitis B Surface Antibody POS HIV (1&2) Ab and P24 Ag, 4th Gener NEG White Blood Count 20.17 K/uL Red Blood Count 4.17 M/uL Hemoglobin 12.7 g/dL Hematocrit 37.5 % Mean Corpuscular Volume 89.9 fL Mean Corpuscular Hemoglobin 30.5 pg Mean Corpuscular Hemoglobin Concent 33.9 g/dl Platelet Count 424 K/uL Mean Platelet Volume 9.3 fL Neutrophils (%) (Auto) 80.8 % Lymphocytes (%) (Auto) 8.3 % Monocytes (%) (Auto) 9.2 % Eosinophils (%) (Auto) 0.0 % Basophils (%) (Auto) 0.1 % Neutrophils # (Auto) 16.27 K/uL Lymphocytes # (Auto) 1.68 K/uL Monocytes # (Auto) 1.86 K/uL Eosinophils # (Auto) 0.01 K/uL Basophils # (Auto) 0.03 K/uL RDW Standard Deviation 45.3 fL RDW Coefficient of Variation 13.9 % Immature Granulocyte % (Auto) 1.6 % Immature Granulocyte # (Auto) 0.32 K/uL Sodium Level 137 mmol/L Potassium Level 4.2 mmol/L Chloride Level 103 mmol/L Carbon Dioxide Level 30 mmol/L Anion Gap 4.0 mmol/L Blood Urea Nitrogen 15 mg/dl Creatinine 0.84 mg/dl Est Creatinine Clear Calc Drug Dose 86.0 ml/min Estimated GFR () 115.0 Estimated GFR (Non- 99.3 BUN/Creatinine Ratio 17.3 Random Glucose 118 mg/dl Calcium Level 7.9 mg/dl Assessment and Plan Pt is a 52 y/o male inmate currently admitted for hematochezia, abd pain, pancolitis on CT; flex sigmoidscopy on 07/20/17 concerning for IBD vs infectious colitis. His CRP is elevated at 16 -> 1.6 now. WBC up to 20K today while on Cipro/Flagyl, IV steroids. Stool cx, Cdiff, Giardia, Cryptosporidium so far negative. He is still having diffuse abd pain, stool urgency, rectal bleeding. - Add Bentyl 10mg TID - Continue Cipro/Flagyl, IV steroids - Will discuss with Dr. Kim about possibly starting TNF today (TB quant , acute hepatitis, HIV all negative). - He will need Hep A immunization; He is immune to Hep B. Addendum: Will start to transition to oral steroids taper: 40mg daily x 1 week, 35mg daily x 1 week, 30mg daily x 1 week, 25mg daily x 1 week, 20mg daily x 1 week, 15mg daily x 1 week, 10mg daily x 1 week, 5mg daily x 1 week. We will help set up his f/u visit with Dr. Kim in 1 week's time in GI clinic before determining start of TNF. I will attempt to contact the [facility] system as well to see the process of getting TNF approval. Attg add: I interviewed and examined pt, reviewed chart and labs. Pt with persistent pain and stool urgency, although this is improving. His CRP has normalized after3 days of steroids. Plan steroid taper. OK for d/c, but will need close outpt f/u. WIll likely need TNF therapy --- re-evaluate in 1 week in clinic.
--- NOTE | 2017-07-25 15:14 | Progress Note ---
Medicine Progress Note Date & Time of Visit: Jul 25, 2017 at 15:14 . Subjective CC: Follow-up visit for colitis. HPI: Large episode of hematochezia this morning. Mild abdominal discomfort. No nausea or vomiting. No fever. ROS: General- as noted above in HPI Resp- no cough; no shortness of breath Cardiac- no chest pain GI- as noted above in HPI - no dysuria, no difficulty voiding . Objective Last 8 Hrs Date Time Temp Pulse Resp B/P (MAP) Pulse Ox O2 Delivery O2 Flow Rate FiO2 07/25/17 07:25 Room Air Physical Exam: General-lying in bed, no distress Lungs- clear to auscultation; no respiratory distress Cardiovascular- RRR; no murmur or gallop appreciated; no JVD; no pretibial edema Abdomen- + bowel sounds, soft, mild lower abdominal tenderness without rebound or guarding Extremities- no cyanosis; no calf tenderness Neuro- alert, oriented Skin- warm & dry . Laboratory Results: Last 24 Hours Test 07/25/17 07:40 White Blood Count 20.17 K/uL Red Blood Count 4.17 M/uL Hemoglobin 12.7 g/dL Hematocrit 37.5 % Mean Corpuscular Volume 89.9 fL Mean Corpuscular Hemoglobin 30.5 pg Mean Corpuscular Hemoglobin Concent 33.9 g/dl Platelet Count 424 K/uL Mean Platelet Volume 9.3 fL Neutrophils (%) (Auto) 80.8 % Lymphocytes (%) (Auto) 8.3 % Monocytes (%) (Auto) 9.2 % Eosinophils (%) (Auto) 0.0 % Basophils (%) (Auto) 0.1 % Neutrophils # (Auto) 16.27 K/uL Lymphocytes # (Auto) 1.68 K/uL Monocytes # (Auto) 1.86 K/uL Eosinophils # (Auto) 0.01 K/uL Basophils # (Auto) 0.03 K/uL RDW Standard Deviation 45.3 fL RDW Coefficient of Variation 13.9 % Immature Granulocyte % (Auto) 1.6 % Immature Granulocyte # (Auto) 0.32 K/uL Sodium Level 137 mmol/L Potassium Level 4.2 mmol/L Chloride Level 103 mmol/L Carbon Dioxide Level 30 mmol/L Anion Gap 4.0 mmol/L Blood Urea Nitrogen 15 mg/dl Creatinine 0.84 mg/dl Est Creatinine Clear Calc Drug Dose 86.0 ml/min Estimated GFR () 115.0 Estimated GFR (Non- 99.3 BUN/Creatinine Ratio 17.3 Random Glucose 118 mg/dl Calcium Level 7.9 mg/dl Assessment & Plan COLITIS Presented to ED with abdominal pain and hematochezia. CT of abdomen and pelvis demonstrated pancolitis. GI consulted. Sigmoidoscopy demonstrated diffuse inflammation. Stool C. difficile PCR negative x 2. Stool culture negative. Biopsy from sigmoidoscopy demonstrated severe chronic and active colitis. Colitis may be infectious or inflammatory etiology Receiving ciprofloxacin, metronidazole, and steroids with clinical improvement and falling CRP. We will probably need TNF. Outpatient follow-up with GI clinic in 1 week recommended. H&H has been stable-recheck tomorrow. VTE PROPHYLAXIS No anticoagulants due to GI bleeding. SCDs. Ambulate as able. DISPOSITION Expected return to [facility]. . Current Inpatient Medications: Current Inpatient Medications Medications (Trade) Dose Ordered Sig/John Route Start Time Stop Time Status Last Admin Dose Admin Acetaminophen (Tylenol Tab) 650 mg Q4H PRN PO 07/19/17 02:00 08/18/17 01:59 Al Hydrox/Mg Hydrox/Simethicone (Maalox Max Susp) 15 ml Q4H PRN PO 07/19/17 02:00 08/18/17 01:59 Ondansetron HCl (Zofran Inj) 4 mg Q6H PRN IV 07/19/17 02:00 08/18/17 01:59 07/20/17 15:30 4 MG Morphine Sulfate (MoRPHine SULFATE INJ) 3 mg Q3HWA PRN IV 07/19/17 02:00 08/02/17 01:59 07/19/17 08:14 3 MG Pantoprazole Sodium (Protonix Tab) 40 mg QAM PO 07/24/17 09:00 08/23/17 08:59 07/25/17 08:54 40 MG Dicyclomine HCl (Bentyl Cap) 10 mg TID PO 07/24/17 14:00 08/23/17 13:59 07/25/17 13:50 10 MG Prednisone (PredniSONE TAB) 40 mg DAILY PO 07/26/17 09:00 08/25/17 08:59 Ciprofloxacin (Cipro Tab) 500 mg BID PO 07/25/17 16:00 4/28/18 02:59 Metronidazole (Flagyl Tab) 500 mg TID PO 07/25/17 21:00 07/29/17 03:59
[2017-07-25 15:18] VITALS: BP 102/70; PULSE 90; TEMP 37; O2SAT 96
[2017-07-25] MEDS: CIPROFLOXACIN 500 MG TAB PO SCH (16:21)
[2017-07-25] MEDS: METRONIDAZOLE 500 MG TAB PO SCH (20:13)
[2017-07-25 22:50] VITALS: BP 110/64; PULSE 86; TEMP 37; O2SAT 96
[2017-07-26 07:33] VITALS: BP 106/67; PULSE 99; TEMP 36.7; O2SAT 95
[2017-07-26 08:04] LABS: BASO % 0.2 %; BASO ABS # 0.03 K/uL (0-0.2); EOS % 1.5 %; EOS ABS # 0.29 K/uL (0-0.5); HEMATOCRIT 38.2 % (42-52); HEMOGLOBIN 12.5 g/dL (14.0-18.0); IG# 0.33 K/uL (0.00-0.02); LYMPH % 16.7 %; LYMPH ABS # 3.24 K/uL (1.2-3.4); MEAN CELL VOLUME 90.7 fL (80-100); MEAN CORPUSCULAR HEMOGLOBIN 29.7 pg (25-34); MEAN CORPUSCULAR HGB CONC 32.7 g/dl (32-36); MEAN PLATELET VOLUME 9.1 fL (7.4-10.4); MONO % 11.3 %; MONO ABS # 2.19 K/uL (0.11-0.59); NEUT % 68.6 %; NEUT ABS # 13.29 K/uL (1.4-6.5); NUCLEATED RED BLOOD CELL ABS 0.04 K/uL (0-0); PLATELET COUNT 406 K/uL (130-400); RED CELL DISTRIBUTION WIDTH CV 14.3 % (11.5-14.5); RED CELL DISTRIBUTION WIDTH SD 46.4 fL (36.4-46.3); WHITE BLOOD COUNT 19.37 K/uL (4.8-10.8)
[2017-07-26 08:30] LABS: CALCIUM 7.8 mg/dl (8.5-10.1); CREATININE 1.04 mg/dl (0.60-1.40); POTASSIUM 3.7 mmol/L (3.5-5.1)
[2017-07-26] MEDS: METRONIDAZOLE 500 MG TAB PO SCH ×3 (09:19→20:11)
[2017-07-26] MEDS: CIPROFLOXACIN 500 MG TAB PO SCH ×2 (09:19→20:11)
[2017-07-26] MEDS: DICYCLOMINE HCL 10 MG CAP PO SCH ×3 (09:19→20:11)
[2017-07-26] MEDS: PANTOprazole SOD 40 MG TAB PO SCH (09:20)
--- NOTE | 2017-07-26 11:54 | Gastroenterology Progress Note ---
Progress Note Date of Service: Jul 26, 2017 Subjective Pt evaluation today including: conversation w/ patient, physical exam, chart review, lab review, review of studies, review of inpatient medication list Reporting some more diarrhea overnite with persistent bleeding, abdominal cramping. Had small amount for breakfast. Review of Systems Constitutional: No fever, No chills Respiratory: No cough, No sputum Cardiac: No chest pain Abdomen: + see HPI Medications Current Inpatient Medications Medications (Trade) Dose Ordered Sig/John Route Start Time Stop Time Status Last Admin Dose Admin Acetaminophen (Tylenol Tab) 650 mg Q4H PRN PO 07/19/17 02:00 08/18/17 01:59 Al Hydrox/Mg Hydrox/Simethicone (Maalox Max Susp) 15 ml Q4H PRN PO 07/19/17 02:00 08/18/17 01:59 Ondansetron HCl (Zofran Inj) 4 mg Q6H PRN IV 07/19/17 02:00 08/18/17 01:59 07/20/17 15:30 4 MG Morphine Sulfate (MoRPHine SULFATE INJ) 3 mg Q3HWA PRN IV 07/19/17 02:00 08/02/17 01:59 07/19/17 08:14 3 MG Pantoprazole Sodium (Protonix Tab) 40 mg QAM PO 07/24/17 09:00 08/23/17 08:59 07/26/17 09:20 40 MG Dicyclomine HCl (Bentyl Cap) 10 mg TID PO 07/24/17 14:00 08/23/17 13:59 07/26/17 09:19 10 MG Prednisone (PredniSONE TAB) 40 mg DAILY PO 07/26/17 09:00 08/25/17 08:59 07/26/17 09:19 40 MG Ciprofloxacin (Cipro Tab) 500 mg BID PO 07/25/17 16:00 07/29/17 02:59 07/26/17 09:19 500 MG Metronidazole (Flagyl Tab) 500 mg TID PO 07/25/17 21:00 07/29/17 03:59 07/26/17 09:19 500 MG Objective Vital Signs Date Time Temp Pulse Resp B/P (MAP) Pulse Ox O2 Delivery O2 Flow Rate FiO2 07/26/17 08:00 Room Air 07/26/17 07:33 36.7 99 18 106/67 (80) 95 Room Air 07/25/17 23:29 Room Air 07/25/17 22:50 37.0 86 16 110/64 (79) 96 Room Air 07/25/17 15:19 Room Air 07/25/17 15:18 37.0 90 16 102/70 (81) 96 Room Air Physical Exam General Appearance: no apparent distress Eyes: PERRL, EOMI Respiratory/Chest: chest non-tender, lungs clear, normal breath sounds Cardiovascular: regular rate, rhythm, no edema, no gallop, no JVD, no murmur Abdomen: normal bowel sounds, soft, + tenderness (mid abdominal area) Laboratory Results Last 24 Hours Test 07/26/17 07:42 White Blood Count 19.37 K/uL Red Blood Count 4.21 M/uL Hemoglobin 12.5 g/dL Hematocrit 38.2 % Mean Corpuscular Volume 90.7 fL Mean Corpuscular Hemoglobin 29.7 pg Mean Corpuscular Hemoglobin Concent 32.7 g/dl Platelet Count 406 K/uL Mean Platelet Volume 9.1 fL Neutrophils (%) (Auto) 68.6 % Lymphocytes (%) (Auto) 16.7 % Monocytes (%) (Auto) 11.3 % Eosinophils (%) (Auto) 1.5 % Basophils (%) (Auto) 0.2 % Neutrophils # (Auto) 13.29 K/uL Lymphocytes # (Auto) 3.24 K/uL Monocytes # (Auto) 2.19 K/uL Eosinophils # (Auto) 0.29 K/uL Basophils # (Auto) 0.03 K/uL RDW Standard Deviation 46.4 fL RDW Coefficient of Variation 14.3 % Immature Granulocyte % (Auto) 1.7 % Immature Granulocyte # (Auto) 0.33 K/uL Nucleated RBC Absolute Count (auto) 0.04 K/uL Nucleated Red Blood Cells % 0.2 % Sodium Level 137 mmol/L Potassium Level 3.7 mmol/L Chloride Level 104 mmol/L Carbon Dioxide Level 28 mmol/L Anion Gap 5.0 mmol/L Blood Urea Nitrogen 15 mg/dl Creatinine 1.04 mg/dl Est Creatinine Clear Calc Drug Dose 69.5 ml/min Estimated GFR () 93.9 Estimated GFR (Non- 81.0 BUN/Creatinine Ratio 14.5 Random Glucose 99 mg/dl Calcium Level 7.8 mg/dl Assessment and Plan Pt is a 52 y/o male inmate currently admitted for hematochezia, abd pain, pancolitis on CT; flex sigmoidscopy on 07/20/17 concerning for IBD vs infectious colitis. His CRP is elevated at 16 -> 1.6 now. WBC up to 20K today while on Cipro/Flagyl, IV steroids. Stool cx, Cdiff, Giardia, Cryptosporidium so far negative. He is still having diffuse abd pain, stool urgency, rectal bleeding. - Continue Bentyl 10mg TID - Continue Cipro/Flagyl. - Would continue with steroid taper: 40mg daily x 1 week, 35mg daily x 1 week, 30mg daily x 1 week, 25mg daily x 1 week, 20mg daily x 1 week, 15mg daily x 1 week, 10mg daily x 1 week, 5mg daily x 1 week - Going to consider starting Humira while in house. Attg add: I interviewed and examined pt, reviewed chart and labs. Pt likely with IBD; his symptoms have been slow to respond to abx. Plan TNF therapy.
[2017-07-26] MEDS ORDERED: ADALIMUMAB 40 MG/0.8 ML SYR SQ ONE (15:15)
[2017-07-26 15:25] VITALS: BP 107/72; PULSE 94; TEMP 37.2; O2SAT 94
--- NOTE | 2017-07-26 20:31 | Progress Note ---
Medicine Progress Note Date & Time of Visit: Jul 26, 2017 at 16:50 . Subjective CC: Follow-up visit for colitis. HPI: Persistent loose/bloody stools. Mild lower abdominal discomfort. No nausea or vomiting. No fever. ROS: General- as noted above in HPI Resp- no cough; no shortness of breath Cardiac- no chest pain GI- as noted above in HPI - no dysuria . Objective Last 8 Hrs Date Time Temp Pulse Resp B/P (MAP) Pulse Ox O2 Delivery O2 Flow Rate FiO2 07/26/17 15:48 Room Air 07/26/17 15:25 37.2 94 18 107/72 (84) 94 Room Air Physical Exam: General-lying in bed, no distress Lungs- clear to auscultation; no respiratory distress Cardiovascular- RRR; no murmur or gallop appreciated; no JVD; no pretibial edema Abdomen- + bowel sounds, soft, mild lower abdominal tenderness without rebound or guarding Extremities- no cyanosis; no calf tenderness Neuro- alert, oriented Skin- warm & dry . Laboratory Results: Last 24 Hours Test 07/26/17 07:42 White Blood Count 19.37 K/uL Red Blood Count 4.21 M/uL Hemoglobin 12.5 g/dL Hematocrit 38.2 % Mean Corpuscular Volume 90.7 fL Mean Corpuscular Hemoglobin 29.7 pg Mean Corpuscular Hemoglobin Concent 32.7 g/dl Platelet Count 406 K/uL Mean Platelet Volume 9.1 fL Neutrophils (%) (Auto) 68.6 % Lymphocytes (%) (Auto) 16.7 % Monocytes (%) (Auto) 11.3 % Eosinophils (%) (Auto) 1.5 % Basophils (%) (Auto) 0.2 % Neutrophils # (Auto) 13.29 K/uL Lymphocytes # (Auto) 3.24 K/uL Monocytes # (Auto) 2.19 K/uL Eosinophils # (Auto) 0.29 K/uL Basophils # (Auto) 0.03 K/uL RDW Standard Deviation 46.4 fL RDW Coefficient of Variation 14.3 % Immature Granulocyte % (Auto) 1.7 % Immature Granulocyte # (Auto) 0.33 K/uL Nucleated RBC Absolute Count (auto) 0.04 K/uL Nucleated Red Blood Cells % 0.2 % Sodium Level 137 mmol/L Potassium Level 3.7 mmol/L Chloride Level 104 mmol/L Carbon Dioxide Level 28 mmol/L Anion Gap 5.0 mmol/L Blood Urea Nitrogen 15 mg/dl Creatinine 1.04 mg/dl Est Creatinine Clear Calc Drug Dose 69.5 ml/min Estimated GFR () 93.9 Estimated GFR (Non- 81.0 BUN/Creatinine Ratio 14.5 Random Glucose 99 mg/dl Calcium Level 7.8 mg/dl Assessment & Plan COLITIS Presented to ED with abdominal pain and hematochezia. CT of abdomen and pelvis demonstrated pancolitis. GI consulted. Sigmoidoscopy demonstrated diffuse inflammation. Stool C. difficile PCR negative x 2. Stool culture negative. Biopsy from sigmoidoscopy demonstrated severe chronic and active colitis. Colitis may be infectious or inflammatory etiology Receiving ciprofloxacin, metronidazole, and steroids with clinical improvement and falling CRP. Adalimumab therapy initiated. Hemoglobin has fallen from 13.9 to 12.5. Continue to follow H&H. Outpatient follow-up with GI clinic in 1 week recommended. VTE PROPHYLAXIS No anticoagulants due to GI bleeding. SCDs. Ambulate as able. DISPOSITION Expected return to [facility]. . Current Inpatient Medications: Current Inpatient Medications Medications (Trade) Dose Ordered Sig/John Route Start Time Stop Time Status Last Admin Dose Admin Acetaminophen (Tylenol Tab) 650 mg Q4H PRN PO 07/19/17 02:00 08/18/17 01:59 Al Hydrox/Mg Hydrox/Simethicone (Maalox Max Susp) 15 ml Q4H PRN PO 07/19/17 02:00 08/18/17 01:59 Ondansetron HCl (Zofran Inj) 4 mg Q6H PRN IV 07/19/17 02:00 08/18/17 01:59 07/20/17 15:30 4 MG Morphine Sulfate (MoRPHine SULFATE INJ) 3 mg Q3HWA PRN IV 07/19/17 02:00 08/02/17 01:59 07/19/17 08:14 3 MG Pantoprazole Sodium (Protonix Tab) 40 mg QAM PO 07/24/17 09:00 08/23/17 08:59 07/26/17 09:20 40 MG Dicyclomine HCl (Bentyl Cap) 10 mg TID PO 07/24/17 14:00 08/23/17 13:59 07/26/17 20:11 10 MG Prednisone (PredniSONE TAB) 40 mg DAILY PO 07/26/17 09:00 08/25/17 08:59 07/26/17 09:19 40 MG Ciprofloxacin (Cipro Tab) 500 mg BID PO 07/25/17 16:00 07/29/17 02:59 07/26/17 20:11 500 MG Metronidazole (Flagyl Tab) 500 mg TID PO 07/25/17 21:00 07/29/17 03:59 07/26/17 20:11 500 MG
[2017-07-26 23:20] VITALS: BP 113/65; PULSE 102; TEMP 36.9; O2SAT 97
[2017-07-27 07:30] VITALS: BP 107/71; PULSE 92; TEMP 36.7; O2SAT 95
[2017-07-27 08:44] LABS: BASO % 0.1 %; BASO ABS # 0.01 K/uL (0-0.2); EOS % 0.5 %; EOS ABS # 0.08 K/uL (0-0.5); HEMATOCRIT 36.1 % (42-52); HEMOGLOBIN 11.7 g/dL (14.0-18.0); IG# 0.24 K/uL (0.00-0.02); LYMPH % 15.4 %; MEAN CELL VOLUME 91.4 fL (80-100); MEAN CORPUSCULAR HEMOGLOBIN 29.6 pg (25-34); MEAN CORPUSCULAR HGB CONC 32.4 g/dl (32-36); MONO % 10.4 %; MONO ABS # 1.76 K/uL (0.11-0.59); NEUT % 72.2 %; NEUT ABS # 12.19 K/uL (1.4-6.5); NUCLEATED RED BLOOD CELL ABS 0.03 K/uL (0-0); PLATELET COUNT 371 K/uL (130-400); RED CELL DISTRIBUTION WIDTH CV 14.5 % (11.5-14.5); RED CELL DISTRIBUTION WIDTH SD 47.3 fL (36.4-46.3); WHITE BLOOD COUNT 16.88 K/uL (4.8-10.8)
[2017-07-27] MEDS: METRONIDAZOLE 500 MG TAB PO SCH ×3 (09:03→21:16)
[2017-07-27] MEDS: PANTOprazole SOD 40 MG TAB PO SCH (09:03)
[2017-07-27] MEDS: DICYCLOMINE HCL 10 MG CAP PO SCH ×3 (09:03→21:16)
[2017-07-27] MEDS: CIPROFLOXACIN 500 MG TAB PO SCH ×2 (09:03→21:16)
--- NOTE | 2017-07-27 09:15 | Gastroenterology Progress Note ---
Progress Note Date of Service: Jul 27, 2017 Subjective Pt evaluation today including: conversation w/ patient, physical exam, chart review, lab review, review of inpatient medication list Pt reports increased bowel movement frequency, stools still loose, and with persistent rectal bleeding. Abd pain is fair. Review of Systems Constitutional: No fever, No chills Respiratory: No cough Cardiac: No chest pain Abdomen: + see HPI, + pain, + diarrhea, + GI bleeding, No nausea, No vomiting Endo: + fatigue Medications Current Inpatient Medications Medications (Trade) Dose Ordered Sig/John Route Start Time Stop Time Status Last Admin Dose Admin Acetaminophen (Tylenol Tab) 650 mg Q4H PRN PO 07/19/17 02:00 08/18/17 01:59 Al Hydrox/Mg Hydrox/Simethicone (Maalox Max Susp) 15 ml Q4H PRN PO 07/19/17 02:00 08/18/17 01:59 Ondansetron HCl (Zofran Inj) 4 mg Q6H PRN IV 07/19/17 02:00 08/18/17 01:59 07/20/17 15:30 4 MG Morphine Sulfate (MoRPHine SULFATE INJ) 3 mg Q3HWA PRN IV 07/19/17 02:00 08/02/17 01:59 07/19/17 08:14 3 MG Pantoprazole Sodium (Protonix Tab) 40 mg QAM PO 07/24/17 09:00 08/23/17 08:59 07/27/17 09:03 40 MG Dicyclomine HCl (Bentyl Cap) 10 mg TID PO 07/24/17 14:00 08/23/17 13:59 07/27/17 09:03 10 MG Prednisone (PredniSONE TAB) 40 mg DAILY PO 07/26/17 09:00 08/25/17 08:59 07/27/17 09:03 40 MG Ciprofloxacin (Cipro Tab) 500 mg BID PO 07/25/17 16:00 07/29/17 02:59 07/27/17 09:03 500 MG Metronidazole (Flagyl Tab) 500 mg TID PO 07/25/17 21:00 07/29/17 03:59 07/27/17 09:03 500 MG Objective Vital Signs Date Time Temp Pulse Resp B/P (MAP) Pulse Ox O2 Delivery O2 Flow Rate FiO2 07/27/17 07:50 Room Air 07/27/17 07:30 36.7 92 18 107/71 (83) 95 Room Air 07/26/17 23:30 Room Air 07/26/17 23:20 36.9 102 16 113/65 (81) 97 Room Air 07/26/17 15:48 Room Air 07/26/17 15:25 37.2 94 18 107/72 (84) 94 Room Air Physical Exam General Appearance: WD/WN, no apparent distress Eyes: normal inspection, PERRL, EOMI Neck: supple, no JVD, trachea midline Respiratory/Chest: normal breath sounds, no respiratory distress, no accessory muscle use Cardiovascular: regular rate, rhythm, no gallop, no murmur Abdomen: normal bowel sounds, soft, + tenderness (diffuse) Extremities: normal inspection, no pedal edema, no calf tenderness Neurologic/Psych: alert, normal mood/affect, oriented x 3 Skin: normal color, no jaundice, no rash Laboratory Results Last 24 Hours Test 07/27/17 08:24 White Blood Count 16.88 K/uL Red Blood Count 3.95 M/uL Hemoglobin 11.7 g/dL Hematocrit 36.1 % Mean Corpuscular Volume 91.4 fL Mean Corpuscular Hemoglobin 29.6 pg Mean Corpuscular Hemoglobin Concent 32.4 g/dl Platelet Count 371 K/uL Mean Platelet Volume 9.0 fL Neutrophils (%) (Auto) 72.2 % Lymphocytes (%) (Auto) 15.4 % Monocytes (%) (Auto) 10.4 % Eosinophils (%) (Auto) 0.5 % Basophils (%) (Auto) 0.1 % Neutrophils # (Auto) 12.19 K/uL Lymphocytes # (Auto) 2.60 K/uL Monocytes # (Auto) 1.76 K/uL Eosinophils # (Auto) 0.08 K/uL Basophils # (Auto) 0.01 K/uL RDW Standard Deviation 47.3 fL RDW Coefficient of Variation 14.5 % Immature Granulocyte % (Auto) 1.4 % Immature Granulocyte # (Auto) 0.24 K/uL Nucleated RBC Absolute Count (auto) 0.03 K/uL Nucleated Red Blood Cells % 0.2 % Assessment and Plan Pt is a 52 y/o male inmate currently admitted for hematochezia, abd pain, pancolitis on CT; flex sigmoidscopy on 07/20/17 concerning for IBD vs infectious colitis. His CRP is elevated at 16 -> 1.6 now. WBC up to 20K today while on Cipro/Flagyl, IV steroids. Stool cx, Cdiff, Giardia, Cryptosporidium so far negative. He is still having diffuse abd pain, stool urgency, rectal bleeding. Started on Humira yesterday. Diarrhea frequency increased. - Continue Bentyl 10mg TID - Continue Cipro/Flagyl. - Would continue with steroid taper: 40mg daily x 1 week, 35mg daily x 1 week, 30mg daily x 1 week, 25mg daily x 1 week, 20mg daily x 1 week, 15mg daily x 1 week, 10mg daily x 1 week, 5mg daily x 1 week - Started on Humira 160mg 07/26/17, will need next dose of 80mg in 2 weeks time then 40mg every 2 weeks (can be given in assisted) - Will check stool cx and Cdiff again given increased diarrhea. Attg add: I interviewed and examined pt, reviewed chart and labs. Pt with persistent diarrhea and rectal bleeding; this may be mildly worse than yesterday. He received Humira yesterday, and cont on prednisone, abx. His exam is unchanged. Labs show decr WBC, neg C diff. D/c abx. Cont prednisone. OK for d/c to [facility] from our standpoint; will arrange for GI f/u in 1 week.
[2017-07-27 09:20] LABS: CALCIUM 7.7 mg/dl (8.5-10.1); CREATININE 0.86 mg/dl (0.60-1.40); POTASSIUM 3.8 mmol/L (3.5-5.1)
[2017-07-27 15:04] VITALS: BP 109/72; PULSE 84; TEMP 36.7; O2SAT 94
--- NOTE | 2017-07-27 21:01 | Progress Note ---
Medicine Progress Note Date & Time of Visit: Jul 27, 2017 at 16:50 . Subjective Still having loose stools with blood, but not as frequent. Mild abdominal pain. No nausea or vomiting. No fever. . Objective Last 8 Hrs Date Time Temp Pulse Resp B/P (MAP) Pulse Ox O2 Delivery O2 Flow Rate FiO2 07/27/17 15:10 Room Air 07/27/17 15:04 36.7 84 18 109/72 (84) 94 Room Air Physical Exam: General-lying in bed, no distress Lungs- clear to auscultation; no respiratory distress Cardiovascular- RRR; no murmur or gallop appreciated; no JVD; no pretibial edema Abdomen- + bowel sounds, soft, mild abdominal tenderness without rebound or guarding Extremities- no cyanosis; no calf tenderness Neuro- alert, oriented Skin- warm & dry . Laboratory Results: Last 24 Hours Test 07/27/17 08:24 White Blood Count 16.88 K/uL Red Blood Count 3.95 M/uL Hemoglobin 11.7 g/dL Hematocrit 36.1 % Mean Corpuscular Volume 91.4 fL Mean Corpuscular Hemoglobin 29.6 pg Mean Corpuscular Hemoglobin Concent 32.4 g/dl Platelet Count 371 K/uL Mean Platelet Volume 9.0 fL Neutrophils (%) (Auto) 72.2 % Lymphocytes (%) (Auto) 15.4 % Monocytes (%) (Auto) 10.4 % Eosinophils (%) (Auto) 0.5 % Basophils (%) (Auto) 0.1 % Neutrophils # (Auto) 12.19 K/uL Lymphocytes # (Auto) 2.60 K/uL Monocytes # (Auto) 1.76 K/uL Eosinophils # (Auto) 0.08 K/uL Basophils # (Auto) 0.01 K/uL RDW Standard Deviation 47.3 fL RDW Coefficient of Variation 14.5 % Immature Granulocyte % (Auto) 1.4 % Immature Granulocyte # (Auto) 0.24 K/uL Nucleated RBC Absolute Count (auto) 0.03 K/uL Nucleated Red Blood Cells % 0.2 % Sodium Level 139 mmol/L Potassium Level 3.8 mmol/L Chloride Level 105 mmol/L Carbon Dioxide Level 30 mmol/L Anion Gap 4.0 mmol/L Blood Urea Nitrogen 14 mg/dl Creatinine 0.86 mg/dl Est Creatinine Clear Calc Drug Dose 84.0 ml/min Estimated GFR () 113.9 Estimated GFR (Non- 98.3 BUN/Creatinine Ratio 16.0 Random Glucose 98 mg/dl Calcium Level 7.7 mg/dl Date/Time Source Procedure Growth Status 07/27/17 10:31 Stool C.difficile Toxin B Gene (PCR) - Final No C. difficile toxin B gene detected Complete 07/27/17 10:31 Stool Shiga Toxin Test Pending Received 07/27/17 10:31 Stool Stool Culture Pending Received Assessment & Plan COLITIS Presented to ED with abdominal pain and hematochezia. CT of abdomen and pelvis demonstrated pancolitis. GI consulted. Sigmoidoscopy demonstrated diffuse inflammation. Stool C. difficile PCR negative x 2. Stool culture negative. Biopsy from sigmoidoscopy demonstrated severe chronic and active colitis. Colitis may be infectious or inflammatory etiology Receiving ciprofloxacin, metronidazole, and steroids with clinical improvement and falling CRP. Adalimumab therapy initiated on 07/26. Hemoglobin has fallen from 13.9 to 11.7. Continue to follow H&H. Outpatient follow-up with GI clinic in 1 week recommended. ANEMIA Hemoglobin has fallen from 13.9 to 11.7. Acute blood loss anemia secondary to GI bleeding. No need for transfusion at this time. Follow. VTE PROPHYLAXIS No anticoagulants due to GI bleeding. SCDs. Ambulate as able. DISPOSITION Expected return to [facility]. . Current Inpatient Medications: Current Inpatient Medications Medications (Trade) Dose Ordered Sig/John Route Start Time Stop Time Status Last Admin Dose Admin Acetaminophen (Tylenol Tab) 650 mg Q4H PRN PO 07/19/17 02:00 08/18/17 01:59 Al Hydrox/Mg Hydrox/Simethicone (Maalox Max Susp) 15 ml Q4H PRN PO 07/19/17 02:00 08/18/17 01:59 Ondansetron HCl (Zofran Inj) 4 mg Q6H PRN IV 07/19/17 02:00 08/18/17 01:59 07/20/17 15:30 4 MG Morphine Sulfate (MoRPHine SULFATE INJ) 3 mg Q3HWA PRN IV 07/19/17 02:00 08/02/17 01:59 07/19/17 08:14 3 MG Pantoprazole Sodium (Protonix Tab) 40 mg QAM PO 07/24/17 09:00 08/23/17 08:59 07/27/17 09:03 40 MG Dicyclomine HCl (Bentyl Cap) 10 mg TID PO 07/24/17 14:00 08/23/17 13:59 07/27/17 13:38 10 MG Prednisone (PredniSONE TAB) 40 mg DAILY PO 07/26/17 09:00 08/25/17 08:59 07/27/17 09:03 40 MG Ciprofloxacin (Cipro Tab) 500 mg BID PO 07/25/17 16:00 07/29/17 02:59 07/27/17 09:03 500 MG Metronidazole (Flagyl Tab) 500 mg TID PO 07/25/17 21:00 07/29/17 03:59 07/27/17 13:38 500 MG
[2017-07-27 23:00] VITALS: BP 120/72; PULSE 86; TEMP 37; O2SAT 97
[2017-07-28 07:43] LABS: BASO % 0.2 %; BASO ABS # 0.03 K/uL (0-0.2); EOS % 0.9 %; EOS ABS # 0.15 K/uL (0-0.5); HEMATOCRIT 34.1 % (42-52); HEMOGLOBIN 11.5 g/dL (14.0-18.0); IG# 0.15 K/uL (0.00-0.02); LYMPH ABS # 3.51 K/uL (1.2-3.4); MEAN CELL VOLUME 90.7 fL (80-100); MEAN CORPUSCULAR HEMOGLOBIN 30.6 pg (25-34); MEAN CORPUSCULAR HGB CONC 33.7 g/dl (32-36); MEAN PLATELET VOLUME 9.1 fL (7.4-10.4); MONO % 10.6 %; MONO ABS # 1.69 K/uL (0.11-0.59); NEUT % 65.4 %; NEUT ABS # 10.42 K/uL (1.4-6.5); NUCLEATED RED BLOOD CELL ABS 0.03 K/uL (0-0); PLATELET COUNT 381 K/uL (130-400); RED CELL DISTRIBUTION WIDTH CV 14.5 % (11.5-14.5); RED CELL DISTRIBUTION WIDTH SD 46.7 fL (36.4-46.3); WHITE BLOOD COUNT 15.95 K/uL (4.8-10.8)
[2017-07-28 08:18] VITALS: BP 147/85; PULSE 78; TEMP 37; O2SAT 94
[2017-07-28 08:20] LABS: CALCIUM 7.7 mg/dl (8.5-10.1); CREATININE 0.87 mg/dl (0.60-1.40); POTASSIUM 3.9 mmol/L (3.5-5.1)
[2017-07-28] MEDS: CIPROFLOXACIN 500 MG TAB PO SCH (09:02)
[2017-07-28] MEDS: PANTOprazole SOD 40 MG TAB PO SCH (09:02)
[2017-07-28] MEDS: METRONIDAZOLE 500 MG TAB PO SCH ×2 (09:02→14:05)
[2017-07-28] MEDS: DICYCLOMINE HCL 10 MG CAP PO SCH ×2 (09:02→14:05)
--- NOTE | 2017-07-28 11:01 | Progress Note ---
Progress Note Date of Service Jul 28, 2017. (Mariann Victor CRNP) Progress Note Pt is a 52 y/o male inmate currently admitted for hematochezia, abd pain, pancolitis on CT; flex sigmoidscopy on 07/20/17 concerning for IBD vs infectious colitis. His CRP is elevated at 16 -> 1.6 now. WBC up to 20K while on Cipro/ Flagyl, IV steroids. Stool cx, Cdiff, Giardia, Cryptosporidium so far negative. He is still having diffuse abd pain, stool urgency, rectal bleeding. Started on Humira 07/26/17. Diarrhea frequency increased repeat Cdiff negative, stool cx pending. He's feeling fair today, still tolerating diet. But stools still somewhat loose and bloody. H/H slowly trending down, but no indication for blood transfusion. WBC decreasing. He is going to be DC'd today. - Continue Bentyl 10mg TID - Continue Cipro/Flagyl PO to complete 10 day course. - Would continue with steroid taper: 40mg daily x 1 week, 35mg daily x 1 week, 30mg daily x 1 week, 25mg daily x 1 week, 20mg daily x 1 week, 15mg daily x 1 week, 10mg daily x 1 week, 5mg daily x 1 week - Started on Humira 160mg 07/26/17, will need next dose of 80mg in 2 weeks time then 40mg every 2 weeks (can be given in [facility]) - F/U in GI clinic in about 1 week's time (had been requested, pending appt). (Mariann Victor CRNP) Attg add: I interviewed and examined pt, reviewed chart and labs. Symptoms, exam remain same - pt with mild persistent diarrhea that is improved from admission. Abd exam NT. WBC improved. Plan steroid taper, humira, eventual outpt cscopy. Correction to above - stop abx, no need to conton d/c. (Claudine Kim M.D.)
--- NOTE | 2017-07-28 12:34 | Progress Note ---
Medicine Progress Note Date & Time of Visit: Jul 28, 2017 at ~ 11:00 . Subjective No fever. Abdominal pain, diarrhea, hematochezia improved, but still having loose bloody stools. Tolerating solid diet. . Objective Last 8 Hrs Date Time Temp Pulse Resp B/P (MAP) Pulse Ox O2 Delivery O2 Flow Rate FiO2 07/28/17 08:18 37.0 78 18 147/85 (105) 94 Room Air 07/28/17 08:00 Room Air Physical Exam: General- lying in bed, no distress Lungs- clear to auscultation; no respiratory distress Cardiovascular- RRR; no murmur or gallop appreciated; no JVD; no pretibial edema Abdomen- + bowel sounds, nondistended, soft, nontender Extremities- no cyanosis; no calf tenderness Neuro- alert, oriented Skin- warm & dry . Laboratory Results: Last 24 Hours Test 07/28/17 07:21 White Blood Count 15.95 K/uL Red Blood Count 3.76 M/uL Hemoglobin 11.5 g/dL Hematocrit 34.1 % Mean Corpuscular Volume 90.7 fL Mean Corpuscular Hemoglobin 30.6 pg Mean Corpuscular Hemoglobin Concent 33.7 g/dl Platelet Count 381 K/uL Mean Platelet Volume 9.1 fL Neutrophils (%) (Auto) 65.4 % Lymphocytes (%) (Auto) 22.0 % Monocytes (%) (Auto) 10.6 % Eosinophils (%) (Auto) 0.9 % Basophils (%) (Auto) 0.2 % Neutrophils # (Auto) 10.42 K/uL Lymphocytes # (Auto) 3.51 K/uL Monocytes # (Auto) 1.69 K/uL Eosinophils # (Auto) 0.15 K/uL Basophils # (Auto) 0.03 K/uL RDW Standard Deviation 46.7 fL RDW Coefficient of Variation 14.5 % Immature Granulocyte % (Auto) 0.9 % Immature Granulocyte # (Auto) 0.15 K/uL Nucleated RBC Absolute Count (auto) 0.03 K/uL Nucleated Red Blood Cells % 0.2 % Sodium Level 138 mmol/L Potassium Level 3.9 mmol/L Chloride Level 105 mmol/L Carbon Dioxide Level 30 mmol/L Anion Gap 3.0 mmol/L Blood Urea Nitrogen 16 mg/dl Creatinine 0.87 mg/dl Est Creatinine Clear Calc Drug Dose 83.1 ml/min Estimated GFR () 113.4 Estimated GFR (Non- 97.8 BUN/Creatinine Ratio 17.8 Random Glucose 88 mg/dl Calcium Level 7.7 mg/dl Assessment & Plan COLITIS Presented to ED with abdominal pain and hematochezia. CT of abdomen and pelvis demonstrated pancolitis. GI consulted. Sigmoidoscopy demonstrated diffuse inflammation. Stool C. difficile PCR negative x 3. Stool culture negative. Biopsy from sigmoidoscopy demonstrated severe chronic and active colitis. Colitis may be infectious or inflammatory etiology Received ciprofloxacin, metronidazole, and steroids with clinical improvement and falling CRP. Adalimumab therapy initiated on 07/26. Ongoing treatment plan per GI recommendations: - Continue Bentyl 10mg TID - Would continue with steroid taper: 40mg daily x 1 week, 35mg daily x 1 week, 30mg daily x 1 week, 25mg daily x 1 week, 20mg daily x 1 week, 15mg daily x 1 week, 10mg daily x 1 week, 5mg daily x 1 week - Started on Humira 160mg 07/26/17, will need next dose of 80mg in 2 weeks time then 40mg every 2 weeks (can be given in nursing home) - F/U in GI clinic in about 1 week's time (had been requested, pending appt). No need for further antibiotic therapy. Outpatient follow-up with GI clinic in 1 week recommended. ANEMIA Hemoglobin has fallen from 13.9 to 11.5. Acute blood loss anemia secondary to GI bleeding. Start Fe. Continue to follow H&H. No need for transfusion at this time. Follow. VTE PROPHYLAXIS No anticoagulants due to GI bleeding. SCDs. Ambulate. DISPOSITION Returning to [facility]. Gastroenterology follow-up with Dr. Kim recommended in 1 week. . Current Inpatient Medications: Current Inpatient Medications Medications (Trade) Dose Ordered Sig/John Route Start Time Stop Time Status Last Admin Dose Admin Acetaminophen (Tylenol Tab) 650 mg Q4H PRN PO 07/19/17 02:00 08/18/17 01:59 Al Hydrox/Mg Hydrox/Simethicone (Maalox Max Susp) 15 ml Q4H PRN PO 07/19/17 02:00 08/18/17 01:59 Ondansetron HCl (Zofran Inj) 4 mg Q6H PRN IV 07/19/17 02:00 08/18/17 01:59 07/20/17 15:30 4 MG Morphine Sulfate (MoRPHine SULFATE INJ) 3 mg Q3HWA PRN IV 07/19/17 02:00 08/02/17 01:59 07/19/17 08:14 3 MG Pantoprazole Sodium (Protonix Tab) 40 mg QAM PO 07/24/17 09:00 08/23/17 08:59 07/28/17 09:02 40 MG Dicyclomine HCl (Bentyl Cap) 10 mg TID PO 07/24/17 14:00 08/23/17 13:59 07/28/17 09:02 10 MG Prednisone (PredniSONE TAB) 40 mg DAILY PO 07/26/17 09:00 08/25/17 08:59 07/28/17 09:02 40 MG Ciprofloxacin (Cipro Tab) 500 mg BID PO 07/25/17 16:00 07/29/17 02:59 07/28/17 09:02 500 MG Metronidazole (Flagyl Tab) 500 mg TID PO 07/25/17 21:00 07/29/17 03:59 07/28/17 09:02 500 MG
[2017-07-28] MEDS ORDERED: BNT10 PO (12:41)
[2017-07-28] MEDS ORDERED: PRED10TA PO (12:41)
[2017-07-28] MEDS ORDERED: ADAL40KI SQ ×2 (12:41→12:52)
[2017-07-28] MEDS ORDERED: FERR325T5 PO (12:43)
[2017-07-28] MEDS ORDERED: [UNRECOGNIZED DRUG - OTHER] PO (12:43)
--- NOTE | 2017-07-28 12:47 | Discharge Instructions ---
Discharge Instructions Date of Service Jul 28, 2017. Admission Reason for Admission: abdominal pain, bloody stools . Discharge Discharge Diagnosis / Problem: colitis, suspected inflammatory bowel disease Discharge Goals Goal(s): Decrease discomfort, Improve disease control Activity Recommendations Activity Limitations: resume your previous activity . Instructions / Follow-Up Instructions / Follow-Up APPOINTMENTS: Gastroenterology follow-up with Dr. Kim in 1 week. Office will contact you with appointment. OTHER INSTRUCTIONS: Seek medical attention if you have: * temperature above 101 * chest pain or trouble breathing * worsening abdominal pain, nausea, vomiting * worsening diarrhea, dark stools or bloody stools * any unanswered questions or concerns Call 911 if symptoms are severe. Call if you have any questions or problems. You can reach a [facility] hospitalist on duty at [facility] 24 hours a day by calling [phone]. Please take good care of yourself. Abdon Amin . Current Hospital Diet Patient's current hospital diet: Low Fiber Diet, Regular Diet, Low Lactose Diet Discharge Diet Recommended Diet: Low Fiber Diet, Low Fat Diet, Low Lactose Diet Procedures Procedures Performed: COLONOSCOPY WITH BX AND STOOL STUDIES Pending Studies Studies pending at discharge: no Medical Emergencies . Who to Call and When: Medical Emergencies: If at any time you feel your situation is an emergency, please call 911 immediately. . Non-Emergent Contact Non-Emergency issues call your: Primary Care Provider, Sr. Strategic Sourcing Manager . . "Provider Documentation" section prepared by Abdon Amin. .
--- NOTE | 2017-07-28 12:56 | Discharge Summary ---
Discharge Summary Date of Service Jul 28, 2017. Discharge Summary Admission Date: Jul 19, 2017 at 01:59 Discharge Date: Jul 28, 2017 Discharge Disposition: Home ([facility], [facility]) Principal Diagnosis: colitis, suspected inflammatory bowel disease acute blood loss anemia . Procedures: CT abdomen pelvis Sigmoidoscopy IV fluids . Consultations: Gastroenterology . Medication Reconciliation New Medications: Adalimumab (Humira Pen) 40 Mg/0.8 Ml Kit 0 SQ UD for 999 Days 80 mg SQ on 08/09/17, then... 40 mg SQ q 2 wks Ascorbic Acid (Ascorbic Acid) 500 Mg/Ml Inj 500 MG PO DAILY for 999 Days take with lunch Ferrous Sulfate (Ferrous Sulfate) 325 Mg Tab 325 MG PO DAILY for 999 Days, TAB take with ascorbic acid at lunch Prednisone Tab (Prednisone) 10 Mg Tab 0 PO UD, #100 TAB 2 Refills 40 mg daily x 7 days 35 mg daily x 7 days 30 mg daily x 7 days 25 mg daily x 7 days 20 mg daily x 7 days 15 mg daily x 7 days 10 mg daily x 7 days 5 mg daily x 7 days then DC Dicyclomine HCl (Dicyclomine HCl) 10 Mg Cap 10 MG PO TID for 30 Days, #90 CAP Continued Medications: Ondansetron Hcl (Zofran) 4 Mg Tab 4 MG PO TID PRN for Nausea, TAB Ranitidine (Zantac) 150 Mg Tab 150 MG PO BID, TAB Discontinued Medications: Meloxicam (Mobic) 15 Mg Tab 15 MG PO DAILY PRN for Pain, TAB Admission Information HPI (per Admitting provider): This is a 52-year-old male with no significant past medical history except for he had a colonoscopy done 15 years ago for lower GI bleed, which was at that time he had polypectomy otherwise unremarkable who is [facility] comes because of ongoing diarrhea for last 2 weeks. The patient states has diarrhea with some blood in the stools and was having severe abdominal pain and is very nauseous, but appetite is okay. He is eating okay. Denies any fever, chills. No headaches, no blurred vision, no ear ache, no sore throat, no difficulty swallowing. No chest pain, no shortness of breath, no cough, no rash anywhere. Otherwise, he is doing okay. Not on any medications but he was placed recently on some meds for his ongoing symptoms . Physical Exam (per Admitting): GENERAL: Patient is moderate built, not in distress. VITAL SIGNS: Temperature 37.1, pulse 98, respiratory rate 18, blood pressure 107/73, oxygen 97% room air. HEENT: No pallor, no icterus. Pupils equal, round, reactive to light. NECK: No JVD, no neck masses, no carotid bruits. CARDIOVASCULAR: S1, S2 heard. Tachycardia. No murmurs. RESPIRATORY SYSTEM: Clear to auscultation bilaterally. No wheezing, no crackles. ABDOMEN: Soft, bowel sounds present. Diffuse tenderness, no guarding, no rigidity. CENTRAL NERVOUS SYSTEM: Cranial nerves II through XII grossly intact. Nonfocal. EXTREMITIES: No edema, no erythema. . Hospital Course COLITIS Presented to ED with abdominal pain and hematochezia. CT of abdomen and pelvis demonstrated pancolitis. GI consulted. Sigmoidoscopy demonstrated diffuse inflammation. Stool C. difficile PCR negative x 3. Stool culture negative. Biopsy from sigmoidoscopy demonstrated severe chronic and active colitis. Colitis may be infectious or inflammatory etiology Received ciprofloxacin, metronidazole, and steroids with clinical improvement and falling CRP. Probably has inflammatory bowel disease Adalimumab therapy initiated on 07/26. Ongoing treatment plan per GI recommendations: - Continue Bentyl 10mg TID - Would continue with steroid taper: 40mg daily x 1 week, 35mg daily x 1 week, 30mg daily x 1 week, 25mg daily x 1 week, 20mg daily x 1 week, 15mg daily x 1 week, 10mg daily x 1 week, 5mg daily x 1 week - Started on Humira 160mg 07/26/17, will need next dose of 80mg in 2 weeks time then 40mg every 2 weeks (can be given in jail) - F/U in GI clinic in about 1 week's time (had been requested, pending appt). No need for further antibiotic therapy. Outpatient follow-up with GI clinic in 1 week recommended. ANEMIA Hemoglobin has fallen from 13.9 to 11.5. Acute blood loss anemia secondary to GI bleeding. Start Fe. Continue to follow H&H. No need for transfusion at this time. Follow. VTE PROPHYLAXIS No anticoagulants due to GI bleeding. SCDs. Ambulate. DISPOSITION Returning to [facility]. Gastroenterology follow-up with Jone Lynn, recommended in 1 week. . Total time spent on discharge = 45 min. This includes examination of the patient, discharge planning, medication reconciliation, and communication with other providers. . Discharge Instructions Date of Service Jul 28, 2017. Admission Reason for Admission: abdominal pain, bloody stools . Discharge Discharge Diagnosis / Problem: colitis, suspected inflammatory bowel disease Discharge Goals Goal(s): Decrease discomfort, Improve disease control Activity Recommendations Activity Limitations: resume your previous activity . Instructions / Follow-Up Instructions / Follow-Up APPOINTMENTS: Gastroenterology follow-up with Dr. Kim in 1 week. Office will contact you with appointment. OTHER INSTRUCTIONS: Seek medical attention if you have: * temperature above 101 * chest pain or trouble breathing * worsening abdominal pain, nausea, vomiting * worsening diarrhea, dark stools or bloody stools * any unanswered questions or concerns Call 911 if symptoms are severe. Call if you have any questions or problems. You can reach a [facility] hospitalist on duty at [facility] 24 hours a day by calling [phone]. Please take good care of yourself. Abdon Amin . Current Hospital Diet Patient's current hospital diet: Low Fiber Diet, Regular Diet, Low Lactose Diet Discharge Diet Recommended Diet: Low Fiber Diet, Low Fat Diet, Low Lactose Diet Procedures Procedures Performed: COLONOSCOPY WITH BX AND STOOL STUDIES Pending Studies Studies pending at discharge: no Medical Emergencies . Who to Call and When: Medical Emergencies: If at any time you feel your situation is an emergency, please call 911 immediately. . Non-Emergent Contact Non-Emergency issues call your: Primary Care Provider, Scheduling Specialist . . "Provider Documentation" section prepared by Abdon Amin. . Additional Copies To Claudine Kim M.D.; [facility]
[2017-07-28 14:09] VITALS: BP 147/85; PULSE 78; TEMP 37; O2SAT 94
== END 2017-07-28 15:13 | DRG 386 ==
LOC: C.EDB 18:23 → C.MSW 07-19 01:59 → ENRESERV 07-19 02:12
PROVIDERS: ADMIT Internal Medicine; ATTEND Hospitalist
PROC: 0DJD8ZZ Inspection of Lower Intestinal Tract, Via Natural or Artificial Opening Endoscopic (ICD-10-PCS; principal; 2017-07-20 10:45)
DX: K51.00 Ulcerative (chronic) pancolitis without complications (principal); K92.2 Gastrointestinal hemorrhage, unspecified; D62 Acute posthemorrhagic anemia; R06.00 Dyspnea, unspecified; Z87.891 Personal history of nicotine dependence; Z82.49 Family history of ischemic heart disease and other diseases of the circulatory system

== ENCOUNTER → 2017-07-18 | Outpatient (CLI) | payer OTHER ==
[~2017-07-18] MED LIST: MELO-84 PO; ONDA4TAB46 PO; RANI150T85 PO
[2017-07-18 13:09] LABS: BASO % 0.2 %; BASO ABS # 0.03 K/uL (0-0.2); EOS % 2.3 %; EOS ABS # 0.37 K/uL (0-0.5); HEMATOCRIT 38.1 % (42-52); HEMOGLOBIN 12.7 g/dL (14.0-18.0); IG# 0.09 K/uL (0.00-0.02); LYMPH % 9.6 %; LYMPH ABS # 1.54 K/uL (1.2-3.4); MEAN CELL VOLUME 89.6 fL (80-100); MEAN CORPUSCULAR HEMOGLOBIN 29.9 pg (25-34); MEAN PLATELET VOLUME 9.9 fL (7.4-10.4); MONO % 13.4 %; MONO ABS # 2.16 K/uL (0.11-0.59); NEUT % 73.9 %; NEUT ABS # 11.88 K/uL (1.4-6.5); PLATELET COUNT 385 K/uL (130-400); RED CELL DISTRIBUTION WIDTH CV 13.4 % (11.5-14.5); RED CELL DISTRIBUTION WIDTH SD 43.8 fL (36.4-46.3); WHITE BLOOD COUNT 16.07 K/uL (4.8-10.8)
[2017-07-18 13:16] LABS: MEAN CORPUSCULAR HGB CONC 33.3 g/dl (32-36)
== END | disposition home or self-care (01) ==
LOC: C.LABSPEC 12:48
DX: K92.2 Gastrointestinal hemorrhage, unspecified (principal)